=== PATIENT | female | born 1960 | race Caucasian/White ===

== ENCOUNTER 2019-03-28 15:39 | Outpatient (CLI) | payer MEDICAID ==
[2019-03-28 18:56] LABS: BASOPHILS # (AUTO) 0.1 10^3/uL (0.0-0.1); BASOPHILS % (AUTO) 0.8 %; EOSINOPHILS # (AUTO) 0.1 10^3/uL (0.0-0.7); EOSINOPHILS % (AUTO) 1.8 %; HGB - HEMOGLOBIN 13.6 g/dL (12.0-16.0); LYMPHOCYTES # (AUTO) 2.3 10^3/uL (1.5-3.5); MEAN CORPUSCULAR HEMOGLOBIN 30.7 pg (27.0-31.0); MEAN CORPUSCULAR HGB CONC 33.1 g/dL (32.0-36.0); MEAN CORPUSCULAR VOLUME 92.8 fL (81.0-99.0); MEAN PLATELET VOLUME 10.5 fL (7.9-10.8); MONOCYTES # (AUTO) 0.5 10^3/uL (0.0-1.0); MONOCYTES % (AUTO) 7.9 %; NEUTROPHILS # (AUTO) 3.6 10^3/uL (1.5-6.6); NEUTROPHILS % (AUTO) 54.2 %; PLT - PLATELET COUNT 272 10^3/uL (130-450); RED BLOOD COUNT 4.43 10^6/uL (4.20-5.40); WHITE BLOOD COUNT 6.6 x10^3/uL (4.8-10.8)
[2019-03-28 19:10] LABS: ALBUMIN 4.1 g/dL (3.2-5.5); ALBUMIN/GLOBULIN RATIO 1.5 (1.0-2.2); ALKALINE PHOSPHATASE 42 IU/L (42-121); ALT ALANINE AMINOTRANSFERASE 11 IU/L (10-60); AST ASPARTATE AMINOTRANSFERASE 16 IU/L (10-42); BILIRUBIN,TOTAL 0.7 mg/dL (0.2-1.0); BUN - BLOOD UREA NITROGEN 11 mg/dL (6-20); CALCIUM 8.8 mg/dL (8.5-10.3); CARBON DIOXIDE - CO2 28 mmol/L (21-32); CHLORIDE 100 mmol/L (101-111); CHOL/HDL RATIO 4.2 (<4.4); CHOLESTEROL 206 mg/dL; CREATININE 0.9 mg/dL (0.4-1.0); GFR - MDRD 65 (>89); GLUCOSE 86 mg/dL (70-100); HDL CHOLESTEROL 49 mg/dL; LDL CHOLESTEROL,CALCULATED 133 mg/dL; LDL/HDL RATIO 2.7 (<4.4); SODIUM 135 mmol/L (135-145); TOTAL PROTEIN 6.8 g/dL (6.7-8.2); VLDL CHOLESTEROL 24 mg/dL
== END 2019-03-28 23:59 | disposition home or self-care (01) ==
LOC: LAB.WCP 15:39
PROVIDERS: ATTEND Physician Assistant
DX: Z00.00 Encounter for general adult medical examination without abnormal findings (principal); E78.5 Hyperlipidemia, unspecified; I10 Essential (primary) hypertension
CPT/HCPCS: 36415; 80053; 80061; 83721; 84443; 85025

== ENCOUNTER 2019-04-15 13:42 | Outpatient (CLI) | payer MEDICAID ==
--- NOTE | 2019-04-15 15:42 | XRAY Report ---
Reason: DYSPHASIA Procedure Date: 04/15/2019 Accession Number: [id number] / [id number] Procedure: FL - Modified Barium Swallow W/SP CPT Code: Final Report FULL RESULT: EXAM: MODIFIED BARIUM SWALLOW EXAM DATE: 04/15/2019 02:50 PM. CLINICAL HISTORY: Dysphagia. COMPARISON: None. TECHNIQUE: Under the direction of speech pathology, patient swallowed various consistencies of barium under lateral fluoroscopic observation of the neck. Fluoroscopy Time: 1.15 minutes. Number of Images: 54/video. FINDINGS: Swallowing Mechanism: Normal oral phase and swallowing reflex. Airway Protection: Normal epiglottic motion. No episodes of tracheal penetration or aspiration with all consistencies of barium. Pharynx: No significant vallecular or piriform sinus contrast pooling. Other: Mildly prominent cricopharyngeus. IMPRESSION: 1. No aspiration or penetration. 2. Mildly prominent cricopharyngeus. No matt stricture or mass lesion. Reference report issued by the speech pathologist for more detailed information. RADIA
== END 2019-04-15 13:43 | disposition home or self-care (01) ==
LOC: DI 13:42
PROVIDERS: ATTEND Physician Assistant
DX: R47.02 Dysphasia (principal)
CPT/HCPCS: 74230

== ENCOUNTER 2019-05-05 15:54 | Outpatient (CLI) | payer MEDICAID ==
--- NOTE | 2019-05-06 12:44 | Ultrasound Report ---
Reason: DYSPHASIA, CERVICAL LYMPHADENOPATHY, THYROMEGALY Procedure Date: 05/05/2019 Accession Number: [id number] / [id number] Procedure: US - Head or Neck Soft Tissue CPT Code: Final Report FULL RESULT: EXAM: THYROID ULTRASOUND EXAM DATE: 05/05/2019 05:10 PM. CLINICAL HISTORY: Dysphasia, cervical lymphadenopathy, thyromegaly. COMPARISON: None. TECHNIQUE: Real time sonographic imaging of the thyroid was performed by the frit coater. Multiple inside sales representative static images were saved for review. FINDINGS: THYROID GLAND: Right Lobe: 3.9 x 1.5 x 1.7 cm, volume 5.2 cc. Heterogeneous background echotexture. Right Lobe Nodules: Inferior pole of the thyroid contains a solid-appearing hypoechoic 0.5 cm nodule. Left Lobe: 3.4 x 1.6 x 1.4 cm, volume 4 cc. Heterogeneous background echotexture. Left Lobe Nodules: 0.2 cm cyst is noted in the upper pole. Isthmus: 0.3 cm AP. Isthmic Nodules: None. LYMPH NODES: No adenopathy demonstrated in the central or lateral compartment. OTHER: The area indicated as tender by the patient in the right and left neck demonstrates peripherally hyperechoic foci which are centrally hypoechoic with some shadowing, potentially calcified cartilage structures. IMPRESSION: Heterogeneous thyroid without nodules warranting tissue sampling. Management recommendations are based on 2015 [place] [employer] Management Guidelines for Adult Patients with Thyroid Nodules and Differentiated Thyroid Cancer. RADIA
== END 2019-05-05 15:55 | disposition home or self-care (01) ==
LOC: DI 15:54
PROVIDERS: ATTEND Physician Assistant
DX: E01.0 Iodine-deficiency related diffuse (endemic) goiter (principal); R59.0 Localized enlarged lymph nodes; R47.02 Dysphasia
CPT/HCPCS: 76536

== ENCOUNTER 2020-03-25 15:40 | Outpatient (CLI) | payer MEDICAID ==
--- NOTE | 2020-03-25 16:22 | CT Report ---
PROCEDURE: CHEST WO INDICATIONS: WEIGHT LOSS, COUGH, SMOKER TECHNIQUE: Noncontrast 5 mm thick sections acquired from the pulmonary apices to the posterior costophrenic angl es. 7 mm thick coronal and sagittal MIP reformats were then acquired. For radiation dose reduction, the following was used: automated exposure control, adjustment of mA and/or kV according to patient size. COMPARISON: None FINDINGS: Image quality: Excellent. Lungs and pleura: No acute air space opacities. No pleural effusions or pneumothorax. Central and peripheral airways are patent and normal in caliber. Mediastinum: Heart size is normal. No pericardial effusion. No mediastinal adenopathy by size crit eria. Thoracic aorta and central pulmonary arteries are normal in size. Esophagus is normal in erin ricarda. No hiatal hernia. Bones and chest wall: No suspicious bony lesions. No vertebral body compression fractures. No axil peyton or supraclavicular adenopathy by size criteria. The thyroid is normal in size. Abdomen: Visualized upper abdominal solid organs and bowel loops appear normal in the absence of con trast. IMPRESSION: 1. No evidence of malignancy. 2. Lung RADS 1; repeat annual screening chest CT in one year is recommended. Reviewed by: Tamar Hensley MD on 03/25/2020 4:21 PM PST Approved by: Tamar Hensley MD on 03/25/2020 4:21 PM PST Station ID: [id number]
== END 2020-03-25 15:41 | disposition home or self-care (01) ==
LOC: DI 15:40
PROVIDERS: ATTEND Nurse Practitioner Family
DX: R63.4 Abnormal weight loss (principal); R05 Cough; F17.200 Nicotine dependence, unspecified, uncomplicated
CPT/HCPCS: 71250

== ENCOUNTER 2020-05-11 08:00 | Outpatient (CLI) | payer MEDICAID ==
[2020-05-11 18:07] LABS: BASOPHILS # (AUTO) 0.1 10^3/uL (0.0-0.1); BASOPHILS % (AUTO) 1.1 %; EOSINOPHILS # (AUTO) 0.1 10^3/uL (0.0-0.7); EOSINOPHILS % (AUTO) 1.1 %; HGB - HEMOGLOBIN 14.3 g/dL (12.0-16.0); LYMPHOCYTES # (AUTO) 1.9 10^3/uL (1.5-3.5); MEAN CORPUSCULAR HEMOGLOBIN 30.1 pg (27.0-31.0); MEAN CORPUSCULAR HGB CONC 33.9 g/dL (32.0-36.0); MEAN CORPUSCULAR VOLUME 88.8 fL (81.0-99.0); MEAN PLATELET VOLUME 10.5 fL (7.9-10.8); MONOCYTES # (AUTO) 0.3 10^3/uL (0.0-1.0); MONOCYTES % (AUTO) 5.4 %; NEUTROPHILS # (AUTO) 2.4 10^3/uL (1.5-6.6); NEUTROPHILS % (AUTO) 52.2 %; PLT - PLATELET COUNT 262 10^3/uL (130-450); RED BLOOD COUNT 4.75 10^6/uL (4.20-5.40); WHITE BLOOD COUNT 4.7 x10^3/uL (4.8-10.8)
[2020-05-11 18:23] LABS: ALBUMIN 4.2 g/dL (3.2-5.5); ALBUMIN/GLOBULIN RATIO 1.4 (1.0-2.2); ALKALINE PHOSPHATASE 51 IU/L (42-121); ALT ALANINE AMINOTRANSFERASE < 10 IU/L (10-60); AST ASPARTATE AMINOTRANSFERASE 12 IU/L (10-42); BILIRUBIN,TOTAL 0.5 mg/dL (0.2-1.0); BUN - BLOOD UREA NITROGEN 11 mg/dL (6-20); CALCIUM 9.3 mg/dL (8.5-10.3); CARBON DIOXIDE - CO2 27 mmol/L (21-32); CHLORIDE 100 mmol/L (101-111); CHOL/HDL RATIO 3.6 (<4.4); CHOLESTEROL 204 mg/dL; CREATININE 0.8 mg/dL (0.4-1.0); GLUCOSE 89 mg/dL (70-100); HDL CHOLESTEROL 56 mg/dL; LDL CHOLESTEROL,CALCULATED 129 mg/dL; LDL/HDL RATIO 2.3 (<4.4); SODIUM 136 mmol/L (135-145); TOTAL PROTEIN 7.1 g/dL (6.7-8.2); VLDL CHOLESTEROL 19 mg/dL
== END 2020-05-11 23:59 | disposition home or self-care (01) ==
LOC: LAB.WCP 08:00
PROVIDERS: ATTEND Nurse Practitioner Family
DX: E01.0 Iodine-deficiency related diffuse (endemic) goiter (principal); I10 Essential (primary) hypertension; J45.20 Mild intermittent asthma, uncomplicated; E78.5 Hyperlipidemia, unspecified; G40.909 Epilepsy, unspecified, not intractable, without status epilepticus
CPT/HCPCS: 36415; 80053; 80061; 83721; 84443; 85025

== ENCOUNTER 2020-05-21 13:01 | Emergency (ER) | payer MEDICAID ==
[2020-05-21] MEDS ORDERED: MELOXICAM 7.5 MG TABLET PO STA (13:43)
--- NOTE | 2020-05-21 13:46 | ED Physician Documentation ---
History of Present Illness - Stated complaint Stated Complaint: R SHOULDER PAIN, R ELBOW PAIN - Chief complaint Chief Complaint: Ext Problem - History obtained from History obtained from: Patient - History of Present Illness Timing: How many days ago (3) Pain level max: 5 Pain level now: 5 - Additonal information Additional information: 59-year-old female presents to the emergency department with right shoulder pain. She does not recall any injury. It is worse with movement, better with rest. She has not taken anything for the pain. States it has been steadily worsening. She also states that if she touches the olecranon process on her elbow it sends a shooting pain up the back of her arm to her neck. There is no redness or swelling at either site. No fevers. No chills. No new medications. Review of Systems Constitutional: denies: Fever, Chills Respiratory: denies: Cough GI: denies: Nausea, Vomiting, Diarrhea : denies: Dysuria Skin: denies: Rash Musculoskeletal: denies: Neck pain, Back pain Neurologic: denies: Headache PD PAST MEDICAL HISTORY - Past Medical History Past Medical History: Yes Cardiovascular: Hypertension, High cholesterol Respiratory: Asthma, Shortness of breath Neuro: TIA, Seizure disorder Endocrine/Autoimmune: None GI: None : None Psych: Depression, Anxiety Musculoskeletal: None Derm: None - Past Surgical History /PERINATAL DIRECTOR: section - Present Medications Home Medications: Ambulatory Orders Medication Instructions Recorded Confirmed Albuterol 2.5 mg INH DAILY 05/05/19 05/05/19 Albuterol Sulfate [Proair Hfa 8.5 gm INH PRN PRN 05/05/19 05/21/20 Inhaler] Fluticasone [Flonase] 250 mcg INH DAILY 05/05/19 05/21/20 Ipratropium [Atrovent] 0.5 mg INH BID 05/05/19 05/21/20 Trazodone HCl 100 mg PO DAILY 05/05/19 05/21/20 Meloxicam [Mobic] 7.5 mg PO BID PRN #20 tablet 05/21/20 - Allergies Allergies/Adverse Reactions: Allergies Allergy/AdvReac Type Severity Reaction Status Date / Time meperidine [From Demerol] Allergy Emesis Verified 05/21/20 13:39 morphine Allergy Emesis Verified 05/21/20 13:39 - Social History Does the pt smoke?: Yes Smoking Status: Current every day smoker PD ED PE NORMAL - Vitals Vital signs reviewed: Yes - General General: Alert and oriented X 3, No acute distress - HEENT HEENT: Moist mucous membranes - Neck Neck: Supple, no meningeal sign - Cardiac Cardiac: RRR - Respiratory Respiratory: No respiratory distress, Clear bilaterally - Derm Derm: Warm and dry - Extremities Extremities: Other - Neuro Neuro: Alert and oriented X 3 - Psych Psych: Normal mood, Normal affect - Free text exam Free text exam: Tender to palpation diffusely about the glenohumeral joint. No swelling. Limited range of motion secondary to pain. Has about 45 degrees of abduction. 70 degrees of external rotation. She can fully internally rotate the shoulder. Neurovascular intact including the axillary nerve. Normal examination of the right elbow. No swelling or tenderness. Results - Vitals Vitals: Vital Signs - 24 hr 05/21/20 05/21/20 13:04 14:58 Temperature 36.8 C Heart Rate 91 80 Respiratory 16 Rate Blood Pressure 152/93 H 168/80 H O2 Saturation 98 Oxygen O2 Source Room air - Rads (name of study) R shoulder xray Radiology: Prelim report reviewed, EMP read contemporaneously, See rad report PD MEDICAL DECISION MAKING - ED course Complexity details: reviewed results, re-evaluated patient, considered differential, d/w patient ED course: 59-year-old female with right shoulder pain. Appears to have a calcific tendinitis and calcific bursitis. We will trial her on anti-inflammatories, stretching and follow-up with orthopedics and/or her doctor. No evidence of fracture, dislocation. Neurovascular intact. Patient feels better with a sling. She can use this intermittently. Patient counseled regarding signs and symptoms for which I believe and urgent re-evaluation would be necessary. Patient with good understanding of and agreement to plan and is comfortable going home at this time This document was made in part using voice recognition software. While efforts are made to proofread this document, sound alike and grammatical errors may occur. IMPRESSION: No trauma. Mild to moderate AC joint osteoarthritis. A combination of both calcific tendinitis and calcific bursitis is seen at the lateral shoulder area, mild in overall severity. Departure - Departure Disposition: 01 Home, Self Care Clinical Impression: Calcific tendinitis Rotator cuff tendonitis Qualifiers: Laterality: right Qualified Code(s): M75.81 - Other shoulder lesions, right shoulder Condition: Good Instructions: ED Tendinitis Rotator Cuff Follow-Up: Paris Norwood PA [Primary Care Provider] - Within 1 week Prescriptions: Meloxicam [Mobic] 7.5 mg PO BID PRN #20 tablet PRN Reason: Pain Comments: Continue to gently stretch your shoulder at home. You can use the meloxicam as needed for pain. Follow-up with your doctor for further care. Your prescription was sent electronically to [facility] in [place]. Discharge Date/Time: 05/21/20 14:58
--- NOTE | 2020-05-21 14:08 | XRAY Report ---
PROCEDURE: Shoulder 3 View RT INDICATIONS: R shoulder pain TECHNIQUE: 4 views of the shoulder were acquired. COMPARISON: None. FINDINGS: Bones: No fractures or dislocations. No suspicious bony lesions. Visualized ribs appear intact. Soft tissues: There is a linear calcification at the expected position of the lateral supraspinatus tendon insertion, and also adjacent to this calcification are several small amorphous ovoid calcifica tions consistent with calcific bursitis. No additional suspicious soft tissue calcifications. Note is made of mild to moderate AC joint osteo arthritis. IMPRESSION: No trauma. Mild to moderate AC joint osteoarthritis. A combination of both calcific tend initis and calcific bursitis is seen at the lateral shoulder area, mild in overall severity. Reviewed by: Ricky Titus MD on 05/21/2020 2:06 PM PST Approved by: Ricky Titus MD on 05/21/2020 2:06 PM [facility] Station ID: [id number]
[2020-05-21 14:59] VITALS: BP 168/80
--- OUTSIDE RECORDS SUMMARY | 2020-05-26 01:41 | EXTERNAL MEDICAL SUMMARY RPT | Continuity of Care Document ---
:1960 Demographics Phone Unavailable Preferred Language Malay Marital Status Unknown Jewish Affiliation Unknown Race Unknown Ethnic Group Unknown Author Organization [facility] Address [address] [place] [address] Phone Care Team Providers Name Role Phone PA-C Unavailable Unavailable Holiday Unavailable Unavailable Problems date description facility 2020-03-16 00:00:00 TSH WITH REFLEX TO [facility] 2020-03-16 00:00:00 Tobacco use disorder [facility] Pr [facility] 2020-03-16 00:00[facility]00 [facility] 2020-03-16 00:00:00 CT [facility] 2020-03-16 00:00:00 COMPREHENSIVE METABOLIC PANEL [facility] Primary Care [facility] 2020-03-16 00:00:00 LIPIDS [facility]CREEN [facility] 2020-03-16 00:00:00 CBC W/Diff/Plt [facility] 2020-03-16 00:00:00 Nicotine dependence, [facility] unspecified, uncomplicated [facility] 2020-03-16 00:00:00 Cough [facility] 2020-03-16 00:00:00 Abnormal weight loss [facility] 2020-03-16 00:00:00 Health-related behavior [facility] 2020-03-16 00:00:00 Tobacco use and exposure [facility] 2020-03-16 00:00:00 Exercise [facility] 2020-03-16 00:00:00 Details of drug misuse behavior [facility] Care [facility] 2020-03-16 00:00:00 Little interest or pleasure in [facility] doing things? [facility] 2020-03-16 00:00:00 Feeling down, depressed, or [facility] hopeless? [facility] 2020-03-16 00:00:00 Current every day sm[facility] 2020-03-16 00:00:[facility] 2020-03-16 00:00:00 Tobacco smoking status NHIS [facility] 2020-03-16 00:00:00 [facility]:00:00 Anxiety state, unspecified [facility] 2020-04-13 00:00:00 Anxiety disorder, unspecified [facility] Primary Care [facility] 2020-04-13 00:00:00 Health-related behavior [facility] 2020-04-13 00:00:00 Tobacco use and exposure [facility] 2020-04-13 00:00:00 Exercise [facility] 2020-04-13 00:00:00 Details of drug misuse behavior [facility] Primary Care [facility] 2020-04-13 00:00:00 Current every day smoker [facility] 2020-04-13 00:00:00 Anxiety [facility] 2020-04-13 00:00:00 Tobacco [facility] 2020-04-13 00:00:00 Total score? [facility] 2020-05-11 00:00 IODINE-DEFICIENCY [facility] DIFFUSE (ENDEMIC) [facility] 2020-05-11 00:00 HYPERLIPIDEMIA, UNSPECIFIED [facility] 2020-05-11 00:00 ESSENTIAL (PRIMARY) [facility] HYPERTENSION 2020-05-11 00:00 MILD INTERMITTENT [facility]HMA[facility] UN[facility] 2020-05-11 00:00 UNSPECIFIED [facility]UL[facility] 2020-05-11 08:00 IODINE-DEFICIENCY RELATED [facility] DIFFUSE (ENDEMIC) [facility] 2020-05-11 08:00 HYPER[facility]IPIDEMIA, [facility]-11 08:00 ESSENTIAL (PRIMARY) [facility] HYPERTENSION 2020-05-11 08:00 MILD INTERMITTENT ASTHMA, [facility] UNCOMPLICATED 2020-05-11 08:00 UNSPECIFIED CONVULSIONS [facility] 2020-05-17 00:00:00 Health-related behavior [facility] Primary Care [facility] 2020-05-17 00:00:00 Tobacco use and exposure [facility] Primary Care [facility] 2020-05-17 00:00:00 Exercise [facility] 2020-05-17 00:00:00 Details of drug misuse behavior [facility] Care [facility] 2020-05-17 00:00:00 Current every day smoker [facility] Primary Care [facility] 2020-05-17 00:00:00 Tobacco smoking status NHIS [facility] Primary Care [facility] 2020-05-17 00:00:00 Total score? [facility] 2020-05-24 00:00:00 Disorders of bursae and tendons [facility] Primary Care in shoulder region, unspecified [place] [facility] 2020-05-24 00:00:00 Calcium deposits in tendon and [facility] Primary Care bursa [facility] 2020-05-24 00:00:00 Calcific tendinitis, [facility] Care unspecified site [place] [facility] 2020-05-24 00:00:00 Calcific tendinitis [facility] Allergies date description facility NO KNOWN ALLERGIES [facility] Medic al Center morphine [facility] Center meperidine [facility] Medic [facility] NO ALLERGY INFORMATION AVAILABLE [facility] ASPIRIN [facility] Medications date description facility 2020-03-16 00:00:00 null [facility] [place] 2020-03-16 00:00:00 null [facility] 2020-03-16 00:00:00 null [facility] 2020-03-16 00:00:00 null [facility] 2020-03-16 00:00:00 PREDNISONE [facility] 2020-03-16 00:00:00 IPRATROPIUM-ALBUTEROL [facility] 2020-03-16 00:00:00 IPRATROPIUM-ALBUTEROL [facility] 2020-03-16 00:00:00 PREDNISONE [facility] 2020-04-13 00:00:00 null [facility] 2020-04-13 00:00:00 null [facility] 2020-04-13 00:00:00 null [facility] 2020-04-13 00:00:00 null [facility] 2020-04-13 00:00:00 null [facility] 2020-04-13 00:00:00 null [facility] 2020-04-13 00:00:00 null [facility] 2020-04-13 00:00:00 null [facility] 2020-04-13 00:00:00 FLUTICASONE PROPIONATE [facility] [place] 2020-04-13 00:00:00 PROPRANOLOL HCL [facility] 2020-04-13 00:00:00 SERTRALINE HCL [facility] 2020-04-13 00:00:00 ALPRAZOLAM [facility] 2020-04-13 00:00:[address] [facility] Primary Care [facility] 2020-04-13 00:00:00 ALPRAZOLAM [facility] 2020-04-13 00:00:00 SERTRALINE HCL [facility] [place] 2020-04-13 00:00:00 [facility]OLOL HCL [facility] [place] 2020-05-24 00:00:00 null [facility] [place] 2020-05-24 00:00:00 null [facility] [place] 2020-05-24 00:00:[address] [facility] [place] 2020-05-24 00:00:[address] [facility] Prim [facility] Care [place] [facility] Procedures date description facility 2020-03-16 00:00:00 TSH WITH REFLEX TO FT4 [facility] Primary Care [place] date description facility 2020-03-16 00:00:00 CT CHEST WO [facility] [place] [facility] date description facility 2020-03-16 00:00:00 COMPREHENSIVE METABOLIC PANEL [facility] Primary Care [place] [facility] date description facility 2020-03-16 00:00:[address] [facility] [place] [facility] date description facility 2020-03-16 00:00:00 CBC W/Diff/Plt [facility] [place] [facility] date description facility 2020-03-16 00:00:[address] [facility] [place] [facility] Results Social History date description facility 2020-03-16 00:00:00 Current [facility] day sm[facility] [place] date description facility 2020-03-16 00:00:00 Smoker [facility] [place] date description facility 2020-04-13 00:00:00 Current [facility] day [facility]oker [facility] [place] date description facility 2020-05-17 00:00:00 Current [facility] day smoker [facility] [place] Social History date description facility 2020-03-16 00:00:00 Current every day smoker [facility] [place] date description facility 2020-03-16 00:00:00 Smoker [facility] [place] [facility] date description facility 2020-04-13 00:00:00 Current [facility] day smoker [facility] [place] date description facility 2020-05-17 00:00:00 [facility] [place] date description facility [phone]
== END 2020-05-21 14:58 | disposition home or self-care (01) ==
LOC: ED 13:01
DX: M75.31 Calcific tendinitis of right shoulder (principal); M75.51 Bursitis of right shoulder; M75.81 Other shoulder lesions, right shoulder; M19.011 Primary osteoarthritis, right shoulder; I10 Essential (primary) hypertension; F17.200 Nicotine dependence, unspecified, uncomplicated
CPT/HCPCS: 73030; 99283; 99284; A9270

== ENCOUNTER 2020-07-16 14:40 | Outpatient (CLI) | payer MEDICAID | END 2020-07-16 14:41 | disposition home or self-care (01) | LOC: LAB 14:40 | PROVIDERS: ATTEND Physician Assistant | DX: Z01.812 Encounter for preprocedural laboratory examination (principal); Z20.822 Contact with and (suspected) exposure to COVID-19; R63.4 Abnormal weight loss; R11.12 Projectile vomiting ==

== ENCOUNTER 2020-07-20 08:22 | Day surgery (SDC) | payer MEDICAID ==
[2020-07-20] MEDS ORDERED: LACTATED RINGERS 1,000 ML IV ONE ×2 (08:57→11:24)
--- NOTE | 2020-07-20 09:10 | ANESTHESIA ---
Pre-Anesthesia VS, & Labs - Diagnosis weight loss, dysphagia, odynophagia - Procedure colonoscopy/egd Vital Signs: Temp Pulse Resp BP Pulse Ox 36.1 C L 73 16 129/86 H 97 07/20/20 08:30 07/20/20 08:30 07/20/20 08:30 07/20/20 08:30 07/20/20 08:30 Height: 5 ft 2 in Weight (kg): 63.4 kg Body Mass Index: 25.5 BMI Classification: Overweight - NPO >8 hours - Is Patient ?: No - Lab Results Lab results reviewed: Yes Home Medications and Allergies Home Medications: Ambulatory Orders Fluticasone/Salmeterol [Advair 250-50 Diskus] 1 each IH DAILY 07/09/20 Ipratropium/Albuterol [Duoneb] 3 ml INH ONCE 07/09/20 Propranolol HCl 20 mg PO BID 07/09/20 Sertraline [Zoloft] 50 mg PO DAILY 07/09/20 Fluticasone [Flonase] 50 mcg INH DAILY 05/05/19 Trazodone HCl 100 mg PO QPM 05/05/19 Fluticasone/Salmeterol [Advair 250-50 Diskus] 1 each IH DAILY 07/09/20 Ipratropium/Albuterol [Duoneb] 3 ml INH ONCE 07/09/20 Propranolol HCl 20 mg PO BID 07/09/20 Sertraline [Zoloft] 50 mg PO DAILY 07/09/20 Allergies/Adverse Reactions: Allergies Allergy/AdvReac Type Severity Reaction Status Date / Time meperidine [From Demerol] Allergy Emesis Verified 05/21/20 13:39 morphine Allergy Emesis Verified 05/21/20 13:39 Anes History & Medical History - Anesthetic History Anesthesia Complications: reports: No previous complications Family history of Anesthesia Complications: Denies Family history of Malignant Hyperthermia: Denies - Medical History Cardiovascular: reports: Hypertension, High cholesterol Pulmonary: reports: Asthma, COPD, Sleep apnea Gastrointestinal: reports: None, Other (recent weight loss (20 lbs)) Urinary: reports: None Neuro: reports: TIA, Seizure disorder Musculoskeletal: reports: Other Endocrine/Autoimmune: reports: None Skin: reports: None Smoking Status: Current every day smoker - Surgical History Gynecologic: reports: section Exam General: Alert, Oriented x3, Cooperative Dental: Loose/Frag (both front lower, upper left), Poor dentition Mouth Openin Fingerbreadth Neck Mobility: Normal Mallampati classification: II Thyromental Distance: 4-6 cm Respiratory: Lungs clear, Normal breath sounds Cardiovascular: Regular rate Neurological: Normal speech Mental/Cognitive Status: Alert/Oriented X3, Normal for patient Cognitive Status: Within normal limits Plan Anesthesia Type: Total IV Consent for Procedure(s) Verified and Reviewed: Yes Code Status: Attempt Resuscitation ASA classification: 2-Mild systemic disease Is this case an emergency?: No
[2020-07-20] MEDS ORDERED: LIDOCAINE-MPF 2% 5 ML VIAL ONE (10:30)
[2020-07-20] MEDS ORDERED: PROPOFOL 500 MG/50 ML 500 MG/50 ML VIAL ONE (10:30)
[2020-07-20] MEDS ORDERED: MIDAZOLAM 2 MG/2 ML VIAL ONE (10:34)
[2020-07-20] MEDS ORDERED: ONDANSETRON 4 MG/2 ML VIAL ONE (10:34)
[2020-07-20 11:46] VITALS: BP 161/94
--- NOTE | 2020-07-20 13:41 | ANESTHESIA POST OP EVALUATION ---
Anesthesia Post Eval - Post Anesthesia Eval Vitals: Last Vital Signs Temp 36.2 C L 07/20/20 11:45 Pulse 89 07/20/20 11:45 Resp 12 07/20/20 11:45 BP 161/94 H 07/20/20 11:45 Pulse Ox 100 07/20/20 11:45 CV Function Including HR & BP: positive: Stable Pain Control: positive: Satisfactory Nausea & Vomiting: positive: Negative Mental Status: positive: Baseline Respiratory Status: Airway Patent Hydration Status: Satisfactory Anesthesia Complications: positive: None
== END 2020-07-20 08:23 | disposition home or self-care (01) ==
LOC: SDS 08:22
PROVIDERS: ATTEND Surgery
PROC: 0DB68ZX Excision of Stomach, Via Natural or Artificial Opening Endoscopic, Diagnostic (ICD-10-PCS; 2020-07-20)
PROC: 0DB28ZX Excision of Middle Esophagus, Via Natural or Artificial Opening Endoscopic, Diagnostic (ICD-10-PCS; 2020-07-20)
PROC: 0DB48ZX Excision of Esophagogastric Junction, Via Natural or Artificial Opening Endoscopic, Diagnostic (ICD-10-PCS; 2020-07-20)
PROC: 0DJD8ZZ Inspection of Lower Intestinal Tract, Via Natural or Artificial Opening Endoscopic (ICD-10-PCS; 2020-07-20)
PROC: 0D778ZZ Dilation of Stomach, Pylorus, Via Natural or Artificial Opening Endoscopic (ICD-10-PCS; 2020-07-20)
PROC: 0DB98ZX Excision of Duodenum, Via Natural or Artificial Opening Endoscopic, Diagnostic (ICD-10-PCS; principal; 2020-07-20 09:30)
PROC: 0DB78ZX Excision of Stomach, Pylorus, Via Natural or Artificial Opening Endoscopic, Diagnostic (ICD-10-PCS; 2020-07-20 09:30)
DX: R63.4 Abnormal weight loss (principal); R11.2 Nausea with vomiting, unspecified; K21.9 Gastro-esophageal reflux disease without esophagitis; K31.1 Adult hypertrophic pyloric stenosis; K29.60 Other gastritis without bleeding; B96.81 Helicobacter pylori [H. pylori] as the cause of diseases classified elsewhere; K44.9 Diaphragmatic hernia without obstruction or gangrene; K64.8 Other hemorrhoids; K57.30 Diverticulosis of large intestine without perforation or abscess without bleeding; J44.9 Chronic obstructive pulmonary disease, unspecified; F17.200 Nicotine dependence, unspecified, uncomplicated; E66.3 Overweight; Z68.25 Body mass index [BMI] 25.0-25.9, adult; I10 Essential (primary) hypertension; G47.30 Sleep apnea, unspecified; G40.909 Epilepsy, unspecified, not intractable, without status epilepticus
CPT/HCPCS: 43239; 43245; 45378; J7120

== ENCOUNTER 2021-09-08 09:33 | Inpatient (IN) | payer MEDICAID ==
--- NOTE | 2021-09-08 11:19 | ED Physician Documentation ---
PD HPI DYSPNEA - Stated complaint Stated Complaint: KIMBERLI GLYNNES - Chief complaint Chief Complaint: Resp - History obtained from History obtained from: Patient - History of Present Illness Timing - onset: How many days ago (4-5) Timing - onset during: Light activity Timing - duration: Days (4-5) Timing - details: Gradual onset, Still present Inciting event(s): URI (some cough and congestion. she says will often get flare up this time of year, not sure if allergies or that her family gets ill and passes it on.), Other (she says kiconnie had URI symptoms last week.). No: Out of meds Improved by: Rest. No: Inhaler/neb Worsened by: Exertion (even just walking in house/to bathroom, etc.) Associated symptoms: Cough, Wheezing. No: Fever, Chest pain / discomfort, Palpitations, Bilateral edema Similar symptoms before: Diagnosis (COPD with exacerbations in the past.) Recently seen: Not recently seen Review of Systems Constitutional: denies: Fever, Chills Nose: reports: Congestion. denies: Rhinorrhea / runny nose Cardiac: denies: Chest pain / pressure, Palpitations, Pedal edema Respiratory: reports: Dyspnea, Cough, Wheezing GI: denies: Abdominal Pain, Nausea, Vomiting, Diarrhea Skin: reports: Other (had some red itching blotches on arms last night, but resolved now.) Musculoskeletal: denies: Neck pain, Back pain, Extremity swelling Neurologic: reports: Generalized weakness. denies: Near syncope PD PAST MEDICAL HISTORY - Past Medical History Cardiovascular: Hypertension, High cholesterol Respiratory: Asthma, COPD (MDIs and nebs at home. Does not use oxygen at home. ), Sleep apnea Neuro: TIA, Seizure disorder Endocrine/Autoimmune: None GI: None, Other (recent weight loss (20 lbs)) : None HEENT: Chronic vision loss Psych: Depression, Anxiety Musculoskeletal: Other Derm: None - Past Surgical History /WIRELESS SALES EXPERT: section - Present Medications Home Medications: Ambulatory Orders Medication Instructions Recorded Confirmed Fluticasone/Salmeterol [Advair 1 puffs INH BID 07/09/20 09/08/21 250-50 Diskus] Ipratropium/Albuterol [Duoneb] 3 ml INH QID PRN 07/09/20 09/08/21 Albuterol Sulfate [Proair Hfa 2 puffs INH Q4H PRN 09/08/21 09/08/21 Inhaler] Meloxicam [Mobic] 7.5 mg PO BID 09/08/21 09/08/21 Sertraline HCl 100 mg PO DAILY 09/08/21 09/08/21 Trazodone HCl 150 mg PO QPM 09/08/21 09/08/21 - Allergies Allergies/Adverse Reactions: Allergies Allergy/AdvReac Type Severity Reaction Status Date / Time Fish Containing Products Allergy Anaphylaxis Verified 09/08/21 17:00 meperidine [From Demerol] Allergy Emesis Verified 09/08/21 09:35 morphine Allergy Emesis Verified 09/08/21 09:35 shellfish derived Allergy Anaphylaxis Verified 09/08/21 16:59 - Social History Does the pt smoke?: Yes Smoking Status: Current every day smoker PD ED PE NORMAL - Vitals Vital signs reviewed: Yes - General General: Alert and oriented X 3, Well developed/nourished, Other (has some work of breathing with accesory muscle use. Able to talk sentences though. ) - HEENT HEENT: Ears normal, Moist mucous membranes, Pharynx benign - Neck Neck: Supple, no meningeal sign, No adenopathy - Cardiac Cardiac: RRR, No murmur - Respiratory Respiratory: No: No respiratory distress (accessory muscle use and sitting up. ), Clear bilaterally (diffuse exp wheezing. No coarse sounds. ) - Abdomen Abdomen: Soft, Non tender - Derm Derm: Normal color, Warm and dry - Extremities Extremities: No deformity, No tenderness to palpate, No edema, No calf tenderness / cord - Neuro Neuro: Alert and oriented X 3, No motor deficit, Normal speech Results - Vitals Vitals: Vital Signs - 24 hr 09/08/21 09/08/21 09/08/21 09:35 11:12 11:58 Temperature 36.5 C Heart Rate 100 65 84 Respiratory 16 20 22 Rate Blood Pressure 180/90 H 155/106 H O2 Saturation 100 93 09/08/21 09/08/21 09/08/21 13:31 14:02 14:28 Temperature Heart Rate 92 89 83 Respiratory 17 20 21 Rate Blood Pressure 175/90 H O2 Saturation 91 L 09/08/21 14:45 Temperature Heart Rate 89 Respiratory 16 Rate Blood Pressure O2 Saturation 89 L Oxygen O2 Source Room air - Labs Labs: Laboratory Tests 09/08/21 09/08/21 09/08/21 11:49 11:49 11:49 WBC 9.4 RBC 5.10 Hgb 15.6 Hct 45.0 MCV 88.2 MCH 30.6 MCHC 34.7 RDW 12.1 Plt Count 286 MPV 9.2 Neut # (Auto) 7.4 H Lymph # (Auto) 1.3 L Craven # (Auto) 0.5 Eos # (Auto) 0.0 Baso # (Auto) 0.1 Absolute Nucleated RBC 0.00 Nucleated RBC % 0.0 Sodium 138 Potassium 4.5 Chloride 100 L Carbon Dioxide 25 Anion Gap 13.0 BUN 17 Creatinine 1.0 Estimated GFR (MDRD) 57 L Glucose 91 Calcium 9.7 Magnesium 2.0 Total Bilirubin 0.9 AST 23 ALT 14 Alkaline Phosphatase 57 B-Natriuretic Peptide 24 Total Protein 8.2 Albumin 4.5 Globulin 3.7 Albumin/Globulin Ratio 1.2 Lipase 40 SARS-CoV-2 (PCR) 09/08/21 14:00 WBC RBC Hgb Hct MCV MCH MCHC RDW Plt Count MPV Neut # (Auto) Lymph # (Auto) Craven # (Auto) Eos # (Auto) Baso # (Auto) Absolute Nucleated RBC Nucleated RBC % Sodium Potassium Chloride Carbon Dioxide Anion Gap BUN Creatinine Estimated GFR (MDRD) Glucose Calcium Magnesium Total Bilirubin AST ALT Alkaline Phosphatase B-Natriuretic Peptide Total Protein Albumin Globulin Albumin/Globulin Ratio Lipase SARS-CoV-2 (PCR) NOT DETECTED - Rads (name of study) chest xray Radiology: Prelim report reviewed (no acute cardiopulmonary abnormality. Suspect old 7th rib fracture. ), See rad report PD MEDICAL DECISION MAKING - ED course Complexity details: reviewed results, re-evaluated patient (still wheezing but appears more comfortable lying down after several nebs. Sats though at 88-91% at rest, and go down to 88% just standing bedside for commode, with much increased work of breathing. ), considered differential, d/w patient, d/w technology applications consultant (hospitalist) Departure - Departure Disposition: ED Place in Observation Clinical Impression: Acute exacerbation of COPD with asthma, Hypoxia Dyspnea Qualifiers: Dyspnea type: shortness of breath Qualified Code(s): R06.02 - Shortness of breath Condition: Stable Record reviewed to determine appropriate education?: Yes Discharge Date/Time: 09/08/21 16:43
[2021-09-08] MEDS ORDERED: SODIUM CHLORIDE 0.9% 1,000 ML IV STA (11:42)
[2021-09-08] MEDS ORDERED: IPRATROPIUM/ALBUTEROL 3 ML NEB INH STA ×2 (11:42→13:52)
[2021-09-08] MEDS ORDERED: DEXAMETHASONE 10 MG/ML VIAL IVP STA (11:43)
[2021-09-08] MEDS ORDERED: cephALEXin 250 MG CAPSULE PO STA (11:43)
[2021-09-08 11:54] LABS: BASOPHILS # (AUTO) 0.1 10^3/uL (0.0-0.1); BASOPHILS % (AUTO) 0.5 %; EOSINOPHILS % (AUTO) 0.1 %; HGB - HEMOGLOBIN 15.6 g/dL (12.0-16.0); LYMPHOCYTES # (AUTO) 1.3 10^3/uL (1.5-3.5); LYMPHOCYTES % (AUTO) 14.2 %; MEAN CORPUSCULAR HEMOGLOBIN 30.6 pg (27.0-31.0); MEAN CORPUSCULAR HGB CONC 34.7 g/dL (32.0-36.0); MEAN CORPUSCULAR VOLUME 88.2 fL (81.0-99.0); MEAN PLATELET VOLUME 9.2 fL (7.9-10.8); MONOCYTES # (AUTO) 0.5 10^3/uL (0.0-1.0); MONOCYTES % (AUTO) 5.3 %; NEUTROPHILS # (AUTO) 7.4 10^3/uL (1.5-6.6); NEUTROPHILS % (AUTO) 79.6 %; PLT - PLATELET COUNT 286 10^3/uL (130-450); RED CELL DISTRIBUTION WIDTH 12.1 % (12.0-15.0); WHITE BLOOD COUNT 9.4 x10^3/uL (4.8-10.8)
[2021-09-08 12:09] LABS: ALBUMIN 4.5 g/dL (3.2-5.5); ALBUMIN/GLOBULIN RATIO 1.2 (1.0-2.2); BILIRUBIN,TOTAL 0.9 mg/dL (0.2-1.0); CALCIUM 9.7 mg/dL (8.5-10.3); POTASSIUM 4.5 mmol/L (3.5-5.0); TOTAL PROTEIN 8.2 g/dL (6.7-8.2)
--- NOTE | 2021-09-08 12:23 | XRAY Report ---
PROCEDURE: Chest 1 View X-Ray INDICATIONS: chest pain TECHNIQUE: One view of the chest was acquired. COMPARISON: CT chest 03/25/2020. FINDINGS: Surgical changes and devices: None. Lungs and pleura: No pleural effusions or pneumothorax. Lungs are clear. Mediastinum: Mediastinal contours appear normal. Heart size is normal. Bones and chest wall: Irregularity of the right 7th rib which could represent prior fracture. No pushpa picious bony lesions. Overlying soft tissues appear unremarkable. IMPRESSION: No acute cardiopulmonary abnormality. Suspect prior right 7th rib fracture. Reviewed by: Isma Barahona MD on 09/08/2021 12:21 PM PDT Approved by: Isma Barahona MD on 09/08/2021 12:21 PM PDT Station ID: [id number]
[2021-09-08] MEDS ORDERED: ALBUTEROL NEB 2.5 MG/3 ML INH STA (13:01)
[2021-09-08] MEDS ORDERED: ONDANSETRON 4 MG/2 ML VIAL IVP PRN (15:15)
[2021-09-08] MEDS ORDERED: ONDANSETRON ODT 4 MG TABLET TL PRN (15:15)
[2021-09-08] MEDS ORDERED: ALBUTEROL NEB 2.5 MG/3 ML INH PRN (15:17)
[2021-09-08] MEDS: ALBUTEROL NEB 2.5 MG/3 ML INH STA ×2 (15:20→17:36)
--- NOTE | 2021-09-08 15:23 | HISTORY & PHYSICAL EXAMINATION ---
Chief Complaint - Chief Complaint Chief Complaint: Wheezing and shortness of breath unresponsive to treatment in ER History of Present Illness - Admitted From Admitted From:: Home - History Obtained From Records Reviewed: [facility] History obtained from: Dr. alfredo and patient Exam Limitations: none - History of Present Illness HPI Comment/Other: She is a smoker of about half a pac/day. Has a history of asthma and usually takes an inhaled steroid as well as short acting bronchodilator. In the last 3 days she has worsened with her cough, sob, congestion. . Inhalers are no longer controlling her symptoms and she came to the emergency room. 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 She takes care of not only her grandchildren, but [employer] personnel. The youngest is 1-year-old and the oldest is 6. Her granddaughter was sick with a cold and had a fever and she thinks she got a cold from her granddaughter. There is no phlegm discoloration. No hemoptysis. She herself has not had fever or rigors. Just increasing congestion, cough, and wheezing that is not able to be relieved by her inhalers. Yesterday she went out for a smoke and was standing on the porch. When she ca me back in she felt like she was itching on her legs and looked down at her knees. She noticed that there were welts/hives there but they went away after 30 to 40 minutes and she ignored them. They were intensely pruritic. Today in the emergency room she had another episode of hives that were over her back, arms, legs. They only lasted about 30 to 40 minutes and they have gone away. She has never had hives like this before. On review of systems, although she has well-established COPD and asthma, her GI review of systems is also notably positive. For about 6 years she has been having early satiety. She can eat normally for a few days in a row and then she just loses her appetite. She will eat a candy bar and that will last her 3 or 4 days if not more. She can actually go up to 10 days without eating and not miss food at all. She does drink water to make sure she stays hydrated but she has abolutely no desire to eat. If she drinks too much water, her belly will feel like it is too distended and that "I am going to explode". In addition to that, she can drink a glass of water and 30 minutes later water comes through her system and she defecates pure water. She did have an EGD 4 years ago and was found to have "some type of infection" but was never really able to complete therapy with the antibiotics because they made her so sick. She does not remember having a colonoscopy or biopsies to establish any diseases. I asked her if she had celiac disease, or inflammatory bowel disease and she is not aware of any of those things. She has had tremendous weight loss with this. However, her sister is a bakery chef. Since her sister is moved to the [place] and her sister is mated for mission to make sure that August eats enough. Socially she has been slowly gaining some weight back but she still pretty thin. She is starting to lose her teeth. She just lost a tooth yesterday. And hair is falling out. She says that she is kind of ashamed about this and has not discussed this with anybody. I asked why she should feel so shameful about a bowel disorder that she has no control over. I asked her point blank if she has some type of eating disorder and she says no. She used to love food. She does not know why this has been happening. She denies fevers, sweats, abdominal pain. No blood in her stool. No change in bladder habits. In the emergency room blood pressure is high at 180/90. Heart rate 100. Initially she was 100% on room air. But with trying to get up and move around her room air sats dropped to 89%. She received albuterol once, Keflex once, d examethasone, DuoNeb twice and is continuing to wheeze and be short of breath with use of accessory muscles. She also has a new hypoxemia that she did not have before. As such Dr. Alfredo is asking the patient to be placed in observation status for COPD exacerbation. History - Past Medical History Cardiovascular: reports: Hypertension, High cholesterol Respiratory: reports: Asthma, COPD, Sleep apnea Neuro: reports: TIA (Happened in her mid 30s. No reason for her to have happe migue but it was documented and she is never had one since.), Seizure disorder (That lasted about 24 years. Started with a TIA 30 years ago and last seizure 6 [address] [place]ed.) Endocrine/Autoimmune: reports: None GI: reports: Other (recent weight loss (20 lbs), Severe intermittent anorexia, diarrhea) TRANSMISSION REPAIRER: reports: Other (G1, P1) : reports: None HEENT: reports: Chronic vision loss, Other (Losing her teeth) Psych: reports: Depression, Anxiety Derm: reports: Other (Recent hives) MRSA Hx?: No - Past Surgical History /TRANSMISSION REPAIRER: reports: section - Family & Social History Family History Comment/Other: Father at age 78 of coronary artery disease, acute renal failure and dialysis. Mother at age 54 of hypertension, pancreatic cancer. One sister is alcoholic and a bakery chef. One sister has Jonh 2 mutation and thrombocytosis. One brother is healthy as far as she knows. One daughter is completely healthy. Children are healthy Living arrangement: At home Living Situation: Alone Social History Notes: She smokes about 10 cigarettes a day. And does liquid cannabis at night for sleep. She used to smoke cannabis but realized that that probably was not too smart in view of her asthma. She has never been but was with the father of her daughter for several years until they split up. 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 She is very proud of that. She was living in [place], [place] and came to live here 4 years ago to help take care of her grandbabies. [place] 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 She has no history of heroin, cocaine, methamphetamine abuse. - Substance History Use: Uses substance without health or social issues: Tobacco Abuse: Recurrent use of substance despite neg consequences: NONE Dependence: Experiences withdrawal or developed tolerances: NONE - POLST Patient has POLST: No POLST Status: Full Code Meds/Allgy - Home Medications Home Medications: Ambulatory Orders Medication Instructions Recorded Confirmed Fluticasone/Salmeterol [Advair 1 puffs INH BID 07/09/20 09/08/21 250-50 Diskus] Ipratropium/Albuterol [Duoneb] 3 ml INH QID PRN 07/09/20 09/08/21 Albuterol Sulfate [Proair Hfa 2 puffs INH Q4H PRN 09/08/21 09/08/21 Inhaler] Meloxicam [Mobic] 7.5 mg PO BID 09/08/21 09/08/21 Sertraline HCl 100 mg PO DAILY 09/08/21 09/08/21 Trazodone HCl 150 mg PO QPM 09/08/21 09/08/21 - Allergies Allergies/Adverse Reactions: Allergies Allergy/AdvReac Type Severity Reaction Status Date / Time Fish Containing Products Allergy Anaphylaxis Verified 09/08/21 17:00 meperidine [From Demerol] Allergy Emesis Verified 09/08/21 09:35 morphine Allergy Emesis Verified 09/08/21 09:35 shellfish derived Allergy Anaphylaxis Verified 09/08/21 16:59 Review of Systems - Constitutional Constitutional: reports: Fatigue, Malaise, Poor appetite, Weight loss. denies: Fever, Chills, Weakness, Diaphoresis, Night sweats - Eyes Eyes: reports: Spots in vision (Only when she used to have her seizures), Vision loss. denies: Pain, Irritation, Amaurosis, Blurred vision, Field loss - Ears, Nose & Throat Ears, Nose & Throat: reports: Dental decay, Dental pain. denies: Ear pain, Hearing loss, Hearing aids, Tinnitus, Vertigo, Nasal discharge, Nasal obstruction, Nasal congestion, Sore throat, Hoarseness - Cardiovascular Cariovascular: reports: Lightheadedness, Exertional dyspnea, Decr. exercise tolerance (For the last couple of weeks). denies: Irregular heart rate, Palpitations, Chest pain, Edema, Syncope - Respiratory Respiratory: reports: Cough, Sputum production (Clear, no hemoptysis), Wheezing, SOB at rest, SOB with exertion - Gastrointestinal Gastrointestinal: reports: Diarrhea, Nausea, Bloating, Poor appetite, Other (Constant daily borborygmi that is sometimes embarrassing because it is so loud). denies: Abdominal pain, Abdominal distention, Black stools, Bloody stools, Vomiting, Bile emesis, Santo blood emesis, Coffee grounds emesis, Reflux/heartburn - Genitourinary Genitourinary: denies: Dysuria, Frequency, Urgency, Hematuria, Incontinence, Flank pain - Musculoskeletal Musculoskeletal: denies: Muscle pain, Back pain, Muscle aches, Stiffness, Joint pain - Integumentary Integumentary: reports: Rash, Hair changes. denies: Pruritis, Lesions, Dryness, Lumps, Acne, Pigment changes - Neurological Neurological: denies: General weakness, Focal weakness, Headache, Dizziness, Memory problems, Pre-existing deficit - Psychiatric Psychiatric: reports: Depression, Anxiety. denies: Suicidal, Delusions, Hallucinations - Endocrine Endocrine: reports: Intolerance to cold. denies: Polyuria, Polydypsia, Polyphagia - Hematologic/Lymphatic Hematologic/Lymphatic: denies: Anemia, Bruising, Petechiae Prior Level of Functionality: Completely independent with activities of daily living.Known apartment. Drives. Pays bills. 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 Comfortable, able to complete full sentences) Eyes Bilateral: positive: PERRL, EOMI ENT: positive: Other (She is definitely losing teeth. One is gone in the upper right side, and 1 is gone in the bottom center. That what happened yesterday. Gingivitis. Pharynx swollen, no erythema or drainage.) Neck: positive: No JVD. negative: Lymphadenopathy (R), Lymphadenopathy (L), Stiff neck, Carotid bruit Respiratory: positive: No respiratory distress, Wheezes, Rhonchi, Other (Occasional phlegmy cough every but she is able to sit back in bed at less than 45 degrees without respiratory distress, I have a complete conversation with me.). negative: Rales Cardiovascular: positive: Regular rate & rhythm. negative: Gallop/S4, Friction rub Peripheral Pulses: positive: 1+ Abdomen: positive: Non-tender, No organomegaly, Nml bowel sounds, No distention Conclusion/Plan - Problem List (1) Acute exacerbation of COPD with asthma Conclusion/Plan: Patient presents with shortness of breath, cough, sinus and chest congestion for the last 3 days is been getting worse. 2 episodes of hives. Unresponsive to her nebulizers and the night before admission feels like she is getting hives. She is COVID vaccinated. Still smokes. In the ER she has a negative chest x-ray, COVID-negative. But has new hypoxemia not responding to nebulizers. CBC does not have eosinophilia. Plan: Solu-Medrol 40 mg IV push every 8 hours x3 doses Nebulizers at a fixed schedule of every 6 hours Albuterol nebulizer as needed every 2 hours Inhaled Perforomist and inhaled budesonide (2) Hypoxia Conclusion/Plan: New for her. This is the main indication we are placing her in observation. Hopefully this will resolve with resolution of her bronchospasm. There is no pn eumonia on chest x-ray. No congestive heart failure. No leg edema or Homans' sign (3) Depression with anxiety Conclusion/Plan: Zoloft and trazodone resumed. (4) Moderate protein-calorie malnutrition Conclusion/Plan: Examination she is cachectic. Thin. Most recently states she is lost 20 pounds after losing 60 to 80 pounds. She really cannot explain her lack of appetite. I will have her work with nutrition consult, but I have recommended that she at least do 1 Ensure can, 3 times a day. Take a multivitamin once a day. And then work out why she has this malabsorption issue. (5) Abnormal intestinal absorption Conclusion/Plan: Prior to 6 years ago she felt like her appetite and bowels were normal. 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 So I do not think she has liver disease or cholestasis. I talked to her about chronic pancreatitis, cystic fibrosis, Schwachman syndrome, Michela- Arrington syndrome, celiac disease, Inflammatory bowel disease. None of these ring a cheema for her. She is very clear the change happened 6 years ago before moving to [facility]. She has never had gastric surgery or pancreatic resection. Although she has defecation of just clear liquid water she denies that this could be urine in her bowel. She also denies stool in her urine so I doubt fistula. She has no history of scleroderma. She is not ingesting a lot of sorbitol. If she is having significant absorption, her CBC remains normal, magnesium is normal. She has no anemia, no microcytosis or macrocytosis. Plan: Recommend colonoscopy with biopsy, as well as upper GI with jejunal aspirate. This will need to be outpatient Phosphorus, B12, folate, vitamin D, zinc, ESR, lipase, amylase although I doubt Celiac would "appear" 6 years ago, will order Anti TTG. stool C&S, O&P - Lab Results Lab results reviewed: Yes Fish Bones: 09/08/21 11:49 09/08/21 11:49 - Diagnostic Imaging Results Diagnostic Imaging Results: positive: Final report reviewed - EKG Results EKG Interpreted Independently: No Core Measures - Anticipated LOS I expect patient to be DC'd or transferred within 96 hours.: Yes - DVT/VTE - Prophylaxis VTE/DVT Device ordered at admit?: Yes
[2021-09-08] MEDS ORDERED: SODIUM CHLORIDE 0.9% 1,000 ML IV SCH (16:00)
[2021-09-08] MEDS: SODIUM CHLORIDE FLUSH 0.9% 10 ML SYRINGE IVP SCH ×2 (17:02→23:38)
--- NOTE | 2021-09-08 17:02 | PHARMACY PROGRESS NOTE ---
- Best Possible Medication History Admit Date and Time: 09/08/21 1515 Processed by: Pharmacy Medication History completed: Yes Patient Interview: Pt unable to participate Secondary Source(s): Physician records, Pharmacy records, Insurance records As the person ultimately responsible for medication therapy, providers are able to order a medication from an existing home medication list in [facility] via the "Reconcile Routine" prior to Confirmation of that medication by cryptologic support specialist. Such practice is discouraged except when the physician, in their clinical judgment, deems that a medical need exists for a medication without regard to previous use.
[2021-09-08] MEDS: ACETAMINOPHEN 325 MG TABLET PO PRN ×2 (17:40→23:38)
[2021-09-08] MEDS: oxyCODONE 5 MG TABLET PO PRN ×2 (17:41→23:38)
[2021-09-08] MEDS: NICOTINE 7 MG PATCH TOP SCH (17:41)
[2021-09-08] MEDS: IPRATROPIUM/ALBUTEROL 3 ML NEB INH SCH (19:45)
[2021-09-08] MEDS: methylPREDNISolone SUCCINATE 40 MG/ML VIAL IVP SCH (20:54)
[2021-09-08] MEDS: traZODone 50 MG TABLET PO SCH (20:54)
[2021-09-08] MEDS ORDERED: PROPRANOLOL 10 MG TABLET PO SCH (21:00)
[2021-09-09] MEDS: IPRATROPIUM/ALBUTEROL 3 ML NEB INH SCH ×4 (01:00→19:29)
[2021-09-09] MEDS: methylPREDNISolone SUCCINATE 40 MG/ML VIAL IVP SCH ×3 (05:14→21:39)
[2021-09-09 05:53] LABS: HCT - HEMATOCRIT 37.1 % (37.0-47.0); HGB - HEMOGLOBIN 12.9 g/dL (12.0-16.0); LYMPHOCYTES # (AUTO) 0.8 10^3/uL (1.5-3.5); LYMPHOCYTES % (AUTO) 8.2 %; MEAN CORPUSCULAR HEMOGLOBIN 30.3 pg (27.0-31.0); MEAN CORPUSCULAR HGB CONC 34.8 g/dL (32.0-36.0); MEAN CORPUSCULAR VOLUME 87.1 fL (81.0-99.0); MEAN PLATELET VOLUME 9.5 fL (7.9-10.8); MONOCYTES # (AUTO) 0.2 10^3/uL (0.0-1.0); MONOCYTES % (AUTO) 2.2 %; NEUTROPHILS # (AUTO) 8.4 10^3/uL (1.5-6.6); NEUTROPHILS % (AUTO) 89.2 %; PLT - PLATELET COUNT 283 10^3/uL (130-450); RED BLOOD COUNT 4.26 10^6/uL (4.20-5.40); RED CELL DISTRIBUTION WIDTH 12.3 % (12.0-15.0); WHITE BLOOD COUNT 9.4 x10^3/uL (4.8-10.8)
[2021-09-09 06:04] LABS: CALCIUM 8.8 mg/dL (8.5-10.3); PHOSPHORUS 2.8 mg/dL (2.5-4.6); POTASSIUM 4.4 mmol/L (3.5-5.0)
[2021-09-09] MEDS: polyethylene glycoL 3350 17 GM PACKET PO SCH (09:34)
[2021-09-09] MEDS: SERTRALINE 50 MG TABLET PO SCH (09:35)
[2021-09-09] MEDS: SODIUM CHLORIDE FLUSH 0.9% 10 ML SYRINGE IVP SCH ×2 (09:35→16:35)
[2021-09-09] MEDS: NICOTINE 7 MG PATCH TOP SCH (09:35)
[2021-09-09 09:36] LABS: % IRON SATURATION 14 % (20-50); IRON 35 ug/dL (28-170); TOTAL IRON BINDING CAPACITY 249 ug/dL (250-450); TRANSFERRIN 178 mg/dL (192-382)
[2021-09-09] MEDS: guaiFENesin/CODEINE 5 ML UDC PO PRN ×2 (09:37→16:42)
[2021-09-09] MEDS: KETOROLAC 15 MG/ML VIAL IVP PRN ×2 (09:37→16:35)
[2021-09-09] MEDS: SODIUM CHLORIDE FLUSH 0.9% 10 ML SYRINGE IVP PRN ×2 (13:31→21:41)
--- NOTE | 2021-09-09 14:54 | PROVIDER PROGRESS NOTE ---
Subjective - Prog Note Date Prog Note Date: 09/09/21 Prog Note Time: 14:52 - Subjective Subjective: I was able to review her old records and find out that Renny Triplett, a temporary provider that was here last year, was the one that did an EGD. She has been stating that no matter how many times she call she can never get a hold of them. He is no longer with her organization so her phone calls may have been for a person that was not there anymore. In either case, the EGD on July 20, 2020 showed pyloric stenosis. Pneumatic dilation was done. There was no duodenitis. She had diffuse gastritis and gastropathy. A minimal hiatal hernia. Pathology had Helicobacter pylori gastritis present. There was no metaplasia or dysplasia of the duodenum, antrum, gastric body. She had squamous mucosa with mild inflammation and reactive changes suggestive of reflux. No eosinophilic esophagitis or goblet cell metaplasia. From her emphysema perspective she feels better. Less cough. She is able to talk more freely. But she has left-sided constant chest pain that wraps around the epigastrium that hurts with deep inspiration. Her O2 requirement is now down to 1 L and she saturates 93%. Current Medications - Current Medications Current Medications: Active Medications Acetaminophen (Acetaminophen 325 Mg Tablet) 650 mg PO Q4HR PRN PRN Reason: Pain 1 to 4, or Fever Last Admin: 09/08/21 23:38 Dose: 650 mg Albuterol (Albuterol Neb 2.5 Mg/3 Ml) 2.5 mg INH Q2HR PRN PRN Reason: Wheezing Albuterol/Ipratropium (Ipratropium/Albuterol 3 Ml Neb) 3 ml INH RTQ6H SAIRA Last Admin: 09/09/21 13:06 Dose: 3 ml Guaifenesin/Codeine Phosphate (Guaifenesin/Codeine 5 Ml Udc) 5 ml PO Q6HR PRN PRN Reason: Cough Last Admin: 09/09/21 09:37 Dose: 5 ml Ketorolac Tromethamine (Ketorolac 15 Mg/Ml Vial) 15 mg IVP Q6HR PRN PRN Reason: PAIN Stop: 09/14/21 09:16 Last Admin: 09/09/21 09:37 Dose: 15 mg Methylprednisolone (Methylprednisolone Succinate 40 Mg/Ml Vial) 40 mg IVP TID SAIRA Last Admin: 09/09/21 13:31 Dose: 40 mg Multivitamins/Minerals (Multivitamin W/Minerals Tablet) 1 tab PO DAILYWM [facility] Nicotine (Nicotine 7 Mg Patch) 1 patch TOP DAILY [facility] Last Admin: 09/09/21 09:35 Dose: 1 patch Ondansetron HCl (Ondansetron Odt 4 Mg Tablet) 4 mg TL Q6HR PRN PRN Reason: Nausea / Vomiting Ondansetron HCl (Ondansetron 4 Mg/2 Ml Vial) 4 mg IVP Q6HR PRN PRN Reason: Nausea / Vomiting Oxycodone HCl (Oxycodone 5 Mg Tablet) 5 mg PO Q4HR PRN PRN Reason: Pain 5 to 7 Last Admin: 09/08/21 23:38 Dose: 5 mg Polyethylene Glycol (Polyethylene Glycol 3350 17 Gm Packet) 17 gm PO DAILY [facility] Last Admin: 09/09/21 09:34 Dose: 17 gm Saccharomyces Boulardii (Saccharomyces Boulardii 250 Mg Capsule) 250 mg PO BIDWM [facility] Sertraline HCl (Sertraline 50 Mg Tablet) 100 mg PO DAILY [facility] Last Admin: 09/09/21 09:35 Dose: 100 mg Sodium Chloride (Sodium Chloride Flush 0.9% 10 Ml Syringe) 10 ml IVP PRN PRN PRN Reason: NEEDED PER PROVIDER ORDERS Last Admin: 09/09/21 13:31 Dose: 10 ml Sodium Chloride (Sodium Chloride Flush 0.9% 10 Ml Syringe) 10 ml IVP 0100,0900,1700 [facility] Last Admin: 09/09/21 09:35 Dose: 10 ml Trazodone HCl (Trazodone 50 Mg Tablet) 150 mg PO QPM [facility] Last Admin: 09/08/21 20:54 Dose: 150 mg Fluticasone/Salmeterol [Advair 250-50 Diskus] 1 puffs INH BID 07/09/20 Ipratropium/Albuterol [Duoneb] 3 ml INH QID PRN 07/09/20 Albuterol Sulfate [Proair Hfa Inhaler] 2 puffs INH Q4H PRN 09/08/21 Meloxicam [Mobic] 7.5 mg PO BID 09/08/21 Sertraline HCl 100 mg PO DAILY 09/08/21 Trazodone HCl 150 mg PO QPM 09/08/21 Objective - Vital Signs/Intake & Output Reviewed Vital Signs: Yes Vital Signs: Vital Signs x48h Temp Pulse Pulse Resp BP Pulse Ox 09/09/21 13:07 37 C 80 20 158/81 H 93 09/09/21 13:05 87 21 09/09/21 08:15 93 16 09/09/21 07:20 36.5 C 76 20 127/72 96 Intake & Output: Intake & Output 09/06/21 09/07/21 09/08/21 09/09/21 23:59 23:59 23:59 23:59 Intake Total 1640 2300 Output Total 300 950 Balance 1340 1350 - Objective General Appearance: positive: No acute distress, Alert, Other (Thin white female looks older than stated age, able to carry on a complete conversation and s pontaneously laugh without shortness of breath. However it does induce coughing spasms. Still quite a bit of nasal congestion and chest congestion.) Eyes Bilateral: positive: PERRL, EOMI ENT: positive: Pharynx nml, Other (Missing teeth, loose teeth, gingivitis) Neck: positive: No JVD. negative: Stiff neck Respiratory: positive: No respiratory distress, Wheezes. negative: Rales, Rhonchi Cardiovascular: positive: Regular rate & rhythm. negative: Gallop/S4, Friction rub Abdomen: positive: Non-tender, No organomegaly, Nml bowel sounds, No distention Skin: positive: Warm, Dry Extremities: positive: Full ROM, No pedal edema Neurologic/Psychiatric: positive: Oriented x3, CN's nml (2-12), Motor nml - Lab Results Fish Bones: 09/09/21 05:38 09/09/21 05:38 Other Labs: Lab Results x24hrs 09/09/21 09/09/21 09/09/21 Range/Units 05:38 05:38 05:38 WBC (4.8-10.8) x10^3/uL RBC (4.20-5.40) 10^6/uL Hgb (12.0-16.0) g/dL Hct (37.0-47.0) % MCV (81.0-99.0) fL MCH (27.0-31.0) pg MCHC (32.0-36.0) g/dL RDW (12.0-15.0) % Plt Count (130-450) 10^3/uL MPV (7.9-10.8) fL Neut # (Auto) (1.5-6.6) 10^3/uL Lymph # (Auto) (1.5-3.5) 10^3/uL Barry # (Auto) (0.0-1.0) 10^3/uL Eos # (Auto) (0.0-0.7) 10^3/uL Baso # (Auto) (0.0-0.1) 10^3/uL Absolute Nucleated RBC x10^3/uL Nucleated RBC % /100WBC ESR (0-30) mm/Hr Sodium (135-145) mmol/L Potassium (3.5-5.0) mmol/L Chloride (101-111) mmol/L Carbon Dioxide (21-32) mmol/L Anion Gap (6-13) BUN (6-20) mg/dL Creatinine (0.4-1.0) mg/dL Estimated GFR (MDRD) (>89) Glucose (70-100) mg/dL Calcium (8.5-10.3) mg/dL Phosphorus (2.5-4.6) mg/dL Iron 35 (28-170) ug/dL TIBC 249 L (250-450) ug/dL % Saturation 14 L (20-50) % Transferrin 178 L (192-382) mg/dL Ferritin 126.4 (11.0-306.8) ng/mL Amylase (28-100) U/L Lipase (22-51) U/L Vitamin B12 341 (180-914) pg/mL SARS-CoV-2 (PCR) 09/09/21 09/09/21 09/09/21 Range/Units 05:38 05:38 05:38 WBC 9.4 (4.8-10.8) x10^3/uL RBC 4.26 (4.20-5.40) 10^6/uL Hgb 12.9 (12.0-16.0) g/dL Hct 37.1 (37.0-47.0) % MCV 87.1 (81.0-99.0) fL MCH 30.3 (27.0-31.0) pg MCHC 34.8 (32.0-36.0) g/dL RDW 12.3 (12.0-15.0) % Plt Count 283 (130-450) 10^3/uL MPV 9.5 (7.9-10.8) fL Neut # (Auto) 8.4 H (1.5-6.6) 10^3/uL Lymph # (Auto) 0.8 L (1.5-3.5) 10^3/uL Barry # (Auto) 0.2 (0.0-1.0) 10^3/uL Eos # (Auto) 0.0 (0.0-0.7) 10^3/uL Baso # (Auto) 0.0 (0.0-0.1) 10^3/uL Absolute Nucleated RBC 0.00 x10^3/uL Nucleated RBC % 0.0 /100WBC ESR 21 (0-30) mm/Hr Sodium 139 (135-145) mmol/L Potassium 4.4 (3.5-5.0) mmol/L Chloride 108 (101-111) mmol/L Carbon Dioxide 22 (21-32) mmol/L Anion Gap 9.0 (6-13) BUN 23 H (6-20) mg/dL Creatinine 1.0 (0.4-1.0) mg/dL Estimated GFR (MDRD) 57 L (>89) Glucose 143 H (70-100) mg/dL Calcium 8.8 (8.5-10.3) mg/dL Phosphorus 2.8 (2.5-4.6) mg/dL Iron (28-170) ug/dL TIBC (250-450) ug/dL % Saturation (20-50) % Transferrin (192-382) mg/dL Ferritin (11.0-306.8) ng/mL Amylase 49 (28-100) U/L Lipase 35 (22-51) U/L Vitamin B12 (180-914) pg/mL SARS-CoV-2 (PCR) 09/08/21 Range/Units 14:00 WBC (4.8-10.8) x10^3/uL RBC (4.20-5.40) 10^6/uL Hgb (12.0-16.0) g/dL Hct (37.0-47.0) % MCV (81.0-99.0) fL MCH (27.0-31.0) pg MCHC (32.0-36.0) g/dL RDW (12.0-15.0) % Plt Count (130-450) 10^3/uL MPV (7.9-10.8) fL Neut # (Auto) (1.5-6.6) 10^3/uL Lymph # (Auto) (1.5-3.5) 10^3/uL Barry # (Auto) (0.0-1.0) 10^3/uL Eos # (Auto) (0.0-0.7) 10^3/uL Baso # (Auto) (0.0-0.1) 10^3/uL Absolute Nucleated RBC x10^3/uL Nucleated RBC % /100WBC ESR (0-30) mm/Hr Sodium (135-145) mmol/L Potassium (3.5-5.0) mmol/L Chloride (101-111) mmol/L Carbon Dioxide (21-32) mmol/L Anion Gap (6-13) BUN (6-20) mg/dL Creatinine (0.4-1.0) mg/dL Estimated GFR (MDRD) (>89) Glucose (70-100) mg/dL Calcium (8.5-10.3) mg/dL Phosphorus (2.5-4.6) mg/dL Iron (28-170) ug/dL TIBC (250-450) ug/dL % Saturation (20-50) % Transferrin (192-382) mg/dL Ferritin (11.0-306.8) ng/mL Amylase (28-100) U/L Lipase (22-51) U/L Vitamin B12 (180-914) pg/mL SARS-CoV-2 (PCR) NOT DETECTED ABX Reporting Has patient been on IV antibiotics over the past 48 hours?: No Assessment/Plan - Problem List (1) Acute exacerbation of COPD with asthma Impression: Patient presents with shortness of breath, cough, sinus and chest congestion for the last 3 days is been getting worse. 2 episodes of hives. Unresponsive to her nebulizers and the night before admission feels like she is getting hives. She is COVID vaccinated. Still smokes. In the ER she has a negative chest x- ray, COVID-negative. But has new hypoxemia not responding to nebulizers. CBC does not have eosinophilia. Since treatment, she has improved with her lung exam. Less O2 requirement. Had another episode of hives last night documented by nursing with pictures. Plan: Solu-Medrol 40 mg IV push every 8 hours x3 doses completed. Nebulizers at a fixed schedule of every 6 hours to continue Albuterol nebulizer as needed every 2 hours to continue Inhaled Perforomist and inhaled budesonide To remain in OBV status per Case Management. (2) Hypoxia Conclusion/Plan: New for her. This is the main indication we are placing her in observation. Hopefully this will resolve with resolution of her bronchospasm. There is no pneumonia on chest x-ray. No congestive heart failure. No leg edema or Homans' sign. Plan: Keep in observation status, continue treatment until hypoxia resolves. (3) Depression with anxiety Conclusion/Plan: Zoloft and trazodone resumed. (4) Moderate protein-calorie malnutrition Conclusion/Plan: On examination she is cachectic. Thin. Most recently states she is lost 20 pounds after losing 60 to 80 pounds. She really cannot explain her lack of appetite. Nutrition services is working with her. They can only document a 10 pound weight loss between the last time she was seen and today. Nutrition services asked her he may need to add a few more labs to the work-up. That is done. She is on supplemental Ensure. And now that I have reviewed her records and find her to have pyloric stenosis, she will need another EGD. She will also need help in completing therapy for H. pylori gastritis since she did not complete it last time. (5) Abnormal intestinal absorption Conclusion/Plan: Prior to 6 years ago she felt like her appetite and bowels were normal. 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 So I do not think she has liver disease or cholestasis. I talked to her about chronic pancreatitis, cystic fibrosis, Schwachman syndrome, Michela- Arrington syndrome, celiac disease, Inflammatory bowel disease. None of these ring a cheema for her. She is very clear the change happened 6 years ago before moving to [facility]. She has never had gastric surgery or pancreatic resection. Although she has defecation of just clear liquid water she denies that this could be urine in her bowel. She also denies stool in her urine so I doubt fis roland. She has no history of scleroderma. She is not ingesting a lot of sorbitol. If she is having significant absorption, her CBC remains normal, magnesium is normal. She has no anemia, no microcytosis or macrocytosis.Iron studies show iron levels of 35. TIBC is 249. Ferritin is 126. Hi this is was hoping to talk to Dr. Seema Navarro about one of her patients that I discharge cannot contact her associate medical director then she will I wanted Plan: Recommend colonoscopy with biopsy, as well as upper GI with jejunal aspirate. This will need to be outpatient Phosphorus, B12, folate, vitamin D, zinc, ESR, lipase, amylase although I doubt Celiac would "appear" 6 years ago, will order Anti TTG. stool C&S, O&P
[2021-09-09] MEDS: SACCHAROMYCES BOULARDII 250 MG CAPSULE PO SCH (16:34)
[2021-09-09] MEDS: oxyCODONE 5 MG TABLET PO PRN ×2 (16:35→21:40)
[2021-09-09] MEDS: ACETAMINOPHEN 325 MG TABLET PO PRN (21:39)
[2021-09-09] MEDS: traZODone 50 MG TABLET PO SCH (21:40)
[2021-09-10] MEDS: SODIUM CHLORIDE FLUSH 0.9% 10 ML SYRINGE IVP SCH ×4 (00:56→23:45)
[2021-09-10] MEDS: SODIUM CHLORIDE FLUSH 0.9% 10 ML SYRINGE IVP PRN ×2 (06:26→22:06)
[2021-09-10] MEDS: methylPREDNISolone SUCCINATE 40 MG/ML VIAL IVP SCH ×3 (06:26→22:06)
[2021-09-10] MEDS: IPRATROPIUM/ALBUTEROL 3 ML NEB INH SCH ×4 (07:11→23:45)
[2021-09-10] MEDS: SACCHAROMYCES BOULARDII 250 MG CAPSULE PO SCH ×2 (07:58→17:01)
[2021-09-10] MEDS: guaiFENesin/CODEINE 5 ML UDC PO PRN ×3 (07:58→20:32)
[2021-09-10] MEDS: MULTIVITAMIN W/MINERALS TABLET PO SCH (07:59)
[2021-09-10] MEDS: polyethylene glycoL 3350 17 GM PACKET PO SCH (07:59)
[2021-09-10] MEDS ORDERED: MORPHINE 2 MG/ML CARPUJECT IVP PRN (08:20)
[2021-09-10] MEDS: SERTRALINE 50 MG TABLET PO SCH (08:44)
[2021-09-10] MEDS: NICOTINE 7 MG PATCH TOP SCH (08:44)
[2021-09-10] MEDS: oxyCODONE 5 MG TABLET PO PRN ×3 (13:25→22:06)
[2021-09-10] MEDS: ACETAMINOPHEN 325 MG TABLET PO PRN ×3 (13:25→22:05)
--- NOTE | 2021-09-10 13:30 | PROVIDER PROGRESS NOTE ---
Subjective - Prog Note Date Prog Note Date: 09/10/21 Prog Note Time: 13:29 - Subjective Pt reports feeling: Worse Subjective: She is in tears. She says that the cough has gotten so severe. Nonstop, spasmodic, causes her to gag. She also has an old rib fracture on rib film and she says she has stabbing pain that wraps around her around the location of where this old rib fracture was. Nonproductive. She feels like she is having to bring up and cannot. Due to spasms of wheezing. No more hives since yesterday to today. Objective - Vital Signs/Intake & Output Vital Signs: Vital Signs x48h Temp Pulse Pulse Resp BP Pulse Ox 09/10/21 13:05 74 16 09/10/21 12:48 37.1 C 76 20 141/71 H 92 09/10/21 09:10 36.5 C 85 20 143/86 H 93 09/10/21 07:11 88 16 Intake & Output: Intake & Output 09/07/21 09/08/21 09/09/21 09/10/21 23:59 23:59 23:59 23:59 Intake Total 1640 2770 1000 Output Total 300 1150 500 Balance 1340 1620 500 - Lab Results Fish Bones: 09/09/21 05:38 09/09/21 05:38 Other Labs: Lab Results x24hrs 09/09/21 Range/Units 05:38 Vitamin D 25-Hydroxy 43.6 (30.0-100.0) ng/mL Assessment/Plan - Problem List (1) Acute exacerbation of COPD with asthma Impression: .Patient presents with shortness of breath, cough, sinus and chest congestion for the last 3 days is been getting worse. 2 episodes of hives. Unresponsive to her nebulizers and the night before admission feels like she is getting hives. She is COVID vaccinated. Still smokes. In the ER she has a negative chest x- ray, COVID-negative. But has new hypoxemia not responding to nebulizers. CBC does not have eosinophilia. Since treatment, she has improved with her lung exam. Less O2 requirement. Had another episode of hives last night documented by nursing with pictures. Plan: When she first came in, she improved with lung exam. I have given her 3 doses of Solu-Medrol. I had thought the order dropped off and she was off it but she has been on it. O2 requirement was dropping. She had another episode of hives on the evening of September 08. None since. Today, much worse exam. Coughing, tearful, short of breath, wheezing. The pain of the coughing has exacerbated her old rib fracture. Plan: Increase solumedrol to 80 mg tid. Continue nebulizers at a fixed schedule, albuterol as needed, continue Perforomist and inhaled budesonide, changed to inpatient status. Add morphine 2 mg IV every 2 to help with respiratory distress and with the pain. There is some limited studies that show that a macrolide such as azithromycin will reduce length of stay and improve symptoms even though the patient does not have clinical infection. I will add azithromycin as well. (2) Hypoxia Conclusion/Plan: Hypoxia was new for her on admission. She was requiring 3 L to maintain her O2 sats. When they gave her steroids and nebs her O2 requirement started going down. Yesterday she needed 1 L. In spite of COPD exacerbation today, she is down to 92 or 93% on room air. No need for oxygen. Plan: Change to inpatient status. Continue treatment as above. Continue to monitor for hypoxia. (3) Depression with anxiety Conclusion/Plan: Zoloft and trazodone resumed. (4) Moderate protein-calorie malnutrition Conclusion/Plan: On examination she is cachectic. Thin. Most recently states she is lost 20 pounds after losing 60 to 80 pounds. She really could not explain her lack of appetite. Nutrition services is working with her. They can only document a 10 pound weight loss between the last time she was seen and today. Reviewing her chart, I believe her problem may be due to incompletely treated ulcer disease or pyloric stenosis. Nutrition services had me do a vitamin D level and it is low normal. She is 43.6 where our lab has a low normal at 30. She is on supplemental Ensure. Plan: Get her to the outpatient evaluation for pyloric stenosis and in adequately treated H. pylori (5) Abnormal intestinal absorption Conclusion/Plan: Prior to 6 years ago she felt like her appetite and bowels were normal. 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 So I do not think she has liver disease or cholestasis. I talked to her about chronic pancreatitis, cystic fibrosis, Schwachman syndrome, Michela- Arrington syndrome, celiac disease, Inflammatory bowel disease. None of these ring a cheema for her. She is very clear the change happened 6 years ago before moving to [facility]. She has never had gastric surgery or pancreatic resection. Although she has defecation of just clear liquid water she denies that this coul d be urine in her bowel. She also denies stool in her urine so I doubt fistula. She has no history of scleroderma. She is not ingesting a lot of sorbitol. If she is having significant absorption, her CBC remains normal, magnesium is normal. She has no anemia, no microcytosis or macrocytosis.Iron studies show iron levels of 35. TIBC is 249. Ferritin is 126. Amylase and lipase are normal. Vitamin D level is low normal at 43. Vitamin B12 is normal at 341. Phosphorus 2.8. Zinc and celiac panel pending. Plan: Recommend colonoscopy with biopsy, as well as upper GI with jejunal aspirate. This will need to be outpatient stool C&S, O&P ordered. (6) Pyloric stenosis in adult Impression: With a history of gastritis. No follow-up since the first time of her dilation. On review of systems she describes lack of hunger, and sometimes retention of even simple water. But then she also describes drinking water and 20 minutes later she is defecating clear water. I mentioned this to general surgery, Dr. Danielson, yesterday. He feels that that is not an inpatient problem that they need to handle. If we could please refer to the outpatient setting to get follow-up. The initial surgeon who saw her was Dr. Renny Claire and he is no longer with the clinic. I will be making referral to Dr. Parker's office or Dr. Lauren to see her in follow-up. Dr. Danielson feel that it is a procedure that he is not comfortable with and would not be doing at this hospital.
[2021-09-10] MEDS: AZITHROMYCIN INJ 500 MG in SODIUM CHLORIDE 0.9% 250 ML IV SCH (14:19)
[2021-09-10] MEDS: KETOROLAC 15 MG/ML VIAL IVP PRN (15:58)
[2021-09-10 17:08] LABS: DEAMIDATED GLIADIN IGA 4 units (0-19); DEAMIDATED GLIADIN IGG <1 units (0-19); ENDOMYSIAL IGA Negative (Negative); IMMUNOGLOBULIN A 340 mg/dL (87-352); T-TRANSGLUTAMINASE (TTG) IGA <2 U/mL (0-3); T-TRANSGLUTAMINASE (TTG) IGG 5 U/mL (0-5)
[2021-09-10] MEDS: traZODone 50 MG TABLET PO SCH (22:04)
[2021-09-11] MEDS: methylPREDNISolone SUCCINATE 40 MG/ML VIAL IVP SCH ×3 (05:21→22:10)
[2021-09-11] MEDS: SODIUM CHLORIDE FLUSH 0.9% 10 ML SYRINGE IVP PRN ×3 (05:21→22:11)
[2021-09-11] MEDS: oxyCODONE 5 MG TABLET PO PRN ×4 (05:33→22:10)
[2021-09-11] MEDS: IPRATROPIUM/ALBUTEROL 3 ML NEB INH SCH ×4 (07:18→20:06)
[2021-09-11 08:18] LABS: BASOPHILS % (AUTO) 0.1 %; EOSINOPHILS % (AUTO) 0.1 %; HCT - HEMATOCRIT 39.9 % (37.0-47.0); HGB - HEMOGLOBIN 13.7 g/dL (12.0-16.0); LYMPHOCYTES # (AUTO) 0.6 10^3/uL (1.5-3.5); LYMPHOCYTES % (AUTO) 5.6 %; MEAN CORPUSCULAR HEMOGLOBIN 30.8 pg (27.0-31.0); MEAN CORPUSCULAR HGB CONC 34.3 g/dL (32.0-36.0); MEAN CORPUSCULAR VOLUME 89.7 fL (81.0-99.0); MEAN PLATELET VOLUME 9.6 fL (7.9-10.8); MONOCYTES # (AUTO) 0.2 10^3/uL (0.0-1.0); MONOCYTES % (AUTO) 1.4 %; NEUTROPHILS # (AUTO) 10.4 10^3/uL (1.5-6.6); NEUTROPHILS % (AUTO) 91.9 %; PLT - PLATELET COUNT 299 10^3/uL (130-450); RED BLOOD COUNT 4.45 10^6/uL (4.20-5.40); RED CELL DISTRIBUTION WIDTH 12.4 % (12.0-15.0); WHITE BLOOD COUNT 11.4 x10^3/uL (4.8-10.8)
[2021-09-11] MEDS: polyethylene glycoL 3350 17 GM PACKET PO SCH (08:22)
[2021-09-11] MEDS: SERTRALINE 50 MG TABLET PO SCH (08:22)
[2021-09-11] MEDS: SACCHAROMYCES BOULARDII 250 MG CAPSULE PO SCH ×2 (08:22→17:53)
[2021-09-11] MEDS: SODIUM CHLORIDE FLUSH 0.9% 10 ML SYRINGE IVP SCH ×2 (08:22→15:56)
[2021-09-11] MEDS: NICOTINE 7 MG PATCH TOP SCH (08:22)
[2021-09-11] MEDS: MULTIVITAMIN W/MINERALS TABLET PO SCH (08:22)
[2021-09-11] MEDS: AZITHROMYCIN INJ 500 MG in SODIUM CHLORIDE 0.9% 250 ML IV SCH (08:23)
[2021-09-11 08:24] LABS: CALCIUM 9.5 mg/dL (8.5-10.3); POTASSIUM 4.3 mmol/L (3.5-5.0)
--- NOTE | 2021-09-11 12:10 | PROVIDER PROGRESS NOTE ---
Subjective - Prog Note Date Prog Note Date: 09/11/21 Prog Note Time: 12:08 - Subjective Subjective: She is better than yesterday. The previous rib fracture she has it is making her miserable because the cough will not stop. She does feel like her chest is less tight and the phlegm is loose and she is able to bring up more secretions than she ever has but the cough still continues in spite of the Robitussin-AC and occasional morphine. We spent quite a bit of time discussing the pyloric stenosis she was diagnosed with. And her history of not tolerating much food or liquid. She tells me that she really does want to follow-up with that. She just could not get through to the surgical office. She ask if she can see Dr. Banegas. She has been told that he would be someone she would want to see. I told her that I could make that referral. Current Medications - Current Medications Current Medications: Active Medications Acetaminophen (Acetaminophen 325 Mg Tablet) 650 mg PO Q4HR PRN PRN Reason: Pain 1 to 4, or Fever Last Admin: 09/10/21 22:05 Dose: 650 mg Albuterol (Albuterol Neb 2.5 Mg/3 Ml) 2.5 mg INH Q2HR PRN PRN Reason: Wheezing Albuterol/Ipratropium (Ipratropium/Albuterol 3 Ml Neb) 3 ml INH RTQ6H [facility] Last Admin: 09/11/21 07:18 Dose: 3 ml Guaifenesin/Codeine Phosphate (Guaifenesin/Codeine 5 Ml Udc) 5 ml PO Q6HR PRN PRN Reason: Cough Last Admin: 09/10/21 20:32 Dose: 5 ml Azithromycin 500 mg/ Sodium (Chloride) 250 mls @ 250 mls/hr IV DAILY [facility] Stop: 09/12/21 09:59 Last Infusion: 09/11/21 11:58 Dose: Infused Ketorolac Tromethamine (Ketorolac 15 Mg/Ml Vial) 15 mg IVP Q6HR PRN PRN Reason: PAIN Stop: 09/14/21 09:16 Last Admin: 09/10/21 15:58 Dose: 15 mg Methylprednisolone (Methylprednisolone Succinate 40 Mg/Ml Vial) 80 mg IVP TID [facility] Last Admin: 09/11/21 05:21 Dose: 80 mg Morphine Sulfate (Morphine 2 Mg/Ml Carpuject) 2 mg IVP Q2HR PRN PRN Reason: Shortness of Air/Wheezing Last Admin: 09/10/21 08:44 Dose: 2 mg Multivitamins/Minerals (Multivitamin W/Minerals Tablet) 1 tab PO DAILYWM [facility] Last Admin: 09/11/21 08:22 Dose: 1 tab Nicotine (Nicotine 7 Mg Patch) 1 patch TOP DAILY [facility] Last Admin: 09/11/21 08:22 Dose: 1 patch Ondansetron HCl (Ondansetron Odt 4 Mg Tablet) 4 mg TL Q6HR PRN PRN Reason: Nausea / Vomiting Ondansetron HCl (Ondansetron 4 Mg/2 Ml Vial) 4 mg IVP Q6HR PRN PRN Reason: Nausea / Vomiting Oxycodone HCl (Oxycodone 5 Mg Tablet) 5 mg PO Q4HR PRN PRN Reason: Pain 5 to 7 Last Admin: 09/11/21 05:33 Dose: 5 mg Polyethylene Glycol (Polyethylene Glycol 3350 17 Gm Packet) 17 gm PO DAILY [facility] Last Admin: 09/11/21 08:22 Dose: 17 gm Saccharomyces Boulardii (Saccharomyces Boulardii 250 Mg Capsule) 250 mg PO BIDWM [facility] Last Admin: 09/11/21 08:22 Dose: 250 mg Sertraline HCl (Sertraline 50 Mg Tablet) 100 mg PO DAILY [facility] Last Admin: 09/11/21 08:22 Dose: 100 mg Sodium Chloride (Sodium Chloride Flush 0.9% 10 Ml Syringe) 10 ml IVP PRN PRN PRN Reason: NEEDED PER PROVIDER ORDERS Last Admin: 09/11/21 05:21 Dose: 10 ml Sodium Chloride (Sodium Chloride Flush 0.9% 10 Ml Syringe) 10 ml IVP 0100,0900,1700 [facility] Last Admin: 09/11/21 08:22 Dose: 10 ml Trazodone HCl (Trazodone 50 Mg Tablet) 150 mg PO QPM [facility] Last Admin: 09/10/21 22:04 Dose: 150 mg Fluticasone/Salmeterol [Advair 250-50 Diskus] 1 puffs INH BID 07/09/20 Ipratropium/Albuterol [Duoneb] 3 ml INH QID PRN 07/09/20 Albuterol Sulfate [Proair Hfa Inhaler] 2 puffs INH Q4H PRN 09/08/21 Meloxicam [Mobic] 7.5 mg PO BID 09/08/21 Sertraline HCl 100 mg PO DAILY 09/08/21 Trazodone HCl 150 mg PO QPM 09/08/21 Objective - Vital Signs/Intake & Output Reviewed Vital Signs: Yes Vital Signs: Vital Signs x48h Temp Pulse Pulse Resp BP BP Pulse Ox 09/11/21 08:20 154/76 H 95 09/11/21 08:14 36.7 C 79 20 169/95 H 90 L 09/11/21 07:19 80 16 09/11/21 06:20 170/94 H 166/91 H 09/11/21 05:00 36.5 C 67 16 172/83 H 93 Intake & Output: Intake & Output 09/08/21 09/09/21 09/10/21 09/11/21 23:59 23:59 23:59 23:59 Intake Total 1640 2770 2970 750 Output Total 300 1150 1425 700 Balance 1340 1620 1545 50 - Objective General Appearance: positive: Alert, Mild distress (Cough, wheezing, and phlegm production), Other (Tears are resolved. Yesterday part of the problem was that she coughed up the tooth. She tells me that today "at least I have not lost ano ther tooth") Eyes Bilateral: positive: PERRL, EOMI ENT: positive: Pharynx nml, Other (Rhinorrhea, nasal tone of voice) Neck: positive: No JVD. negative: Stiff neck Respiratory: positive: No respiratory distress, Wheezes, Rhonchi (Inspiratory whistling and gurgling phlegm), Other (Is able to speak without increased respiratory effort but it induces coughing spasms. No use of accessory muscles. She is not tripoding. She has been down to room air since yesterday. 95% currently). negative: Rales Cardiovascular: positive: Regular rate & rhythm. negative: Gallop/S4, Friction rub Abdomen: positive: Non-tender, No organomegaly, Nml bowel sounds, No distention Skin: positive: No rash, Warm, Dry Extremities: positive: Full ROM, No pedal edema Neurologic/Psychiatric: positive: Oriented x3, CN's nml (2-12), Motor nml - Lab Results Fish Bones: 09/11/21 08:10 09/11/21 08:10 Other Labs: Lab Results x24hrs 09/11/21 09/11/21 09/09/21 Range/Units 08:10 08:10 05:38 WBC 11.4 H (4.8-10.8) x10^3/uL RBC 4.45 (4.20-5.40) 10^6/uL Hgb 13.7 (12.0-16.0) g/dL Hct 39.9 (37.0-47.0) % MCV 89.7 (81.0-99.0) fL MCH 30.8 (27.0-31.0) pg MCHC 34.3 (32.0-36.0) g/dL RDW 12.4 (12.0-15.0) % Plt Count 299 (130-450) 10^3/uL MPV 9.6 (7.9-10.8) fL Neut # (Auto) 10.4 H (1.5-6.6) 10^3/uL Lymph # (Auto) 0.6 L (1.5-3.5) 10^3/uL Calvert # (Auto) 0.2 (0.0-1.0) 10^3/uL Eos # (Auto) 0.0 (0.0-0.7) 10^3/uL Baso # (Auto) 0.0 (0.0-0.1) 10^3/uL Absolute Nucleated RBC 0.00 x10^3/uL Nucleated RBC % 0.0 /100WBC Sodium 138 (135-145) mmol/L Potassium 4.3 (3.5-5.0) mmol/L Chloride 101 (101-111) mmol/L Carbon Dioxide 25 (21-32) mmol/L Anion Gap 12.0 (6-13) BUN 30 H (6-20) mg/dL Creatinine 1.0 (0.4-1.0) mg/dL Estimated GFR (MDRD) 57 L (>89) Glucose 150 H (70-100) mg/dL Calcium 9.5 (8.5-10.3) mg/dL IgA 340 (87-352) mg/dL Endomysial IgA Ab Negative (Negative) Tiss Transglutamin IgG 5 (0-5) U/mL Tiss Transglutamin IgA <2 (0-3) U/mL Anti-Gliadin IgG Ab <1 (0-19) units Anti-Gliadin IgA Ab 4 (0-19) units ABX Reporting Has patient been on IV antibiotics over the past 48 hours?: Yes Assessment/Plan - Problem List (1) Acute exacerbation of COPD with asthma Impression: .Patient presents with shortness of breath, cough, sinus and chest congestion for the l3 days [employer] that had been getting worse. 2 episodes of hives. Unresponsive to her nebulizers and the night before admission feels like she is getting hives. She is COVID vaccinated. Still smokes. In the ER she has a negative chest x-ray, COVID-negative. But has new hypoxemia not responding to nebulizers. CBC does not have eosinophilia. When she first came in, she improved with lung exam after our treatment. I had given her 3 doses of Solu-Medrol. I had thought the order dropped off and she was off it but she has been on it. O2 requirement was dropping. She had another episode of hives on the evening of September 08. None since. 09/10 much worse exam. Coughing, tearful, short of breath, wheezing. Loss a tooth with one of her episodes of coughing. The pain of the coughing has exacerbated her old rib fracture. I increased solumedrol to 80 mg tid, Continued nebulizers at a fixed schedule, albuterol as needed, continued Perforomist and inhaled budesonide, Added morphine 2 mg IV every 2 to help with respiratory distress and with the pain. There is some limited studies that show that a macrolide such as azithromycin will reduce length of stay and improve symptoms even though the patient does not have clinical infection. I added azithromycin as well. There has been improvement in pain and oxygen requirement but still with quite a bit of rhonchi and wheezing today. She is "looser" and bring up phlegm more easily. Plan: Stay on current treatment and if improved tomorrow change to po meds. (2) Hypoxia resolved Conclusion/Plan: Hypoxia was new for her on admission. She was requiring 3 L to maintain her O2 sats. When they gave her steroids and nebs her O2 requirement started going down. In spite of COPD exacerbation 09/10, she was down to 92 or 93% on room air. No need for oxygen. Plan: Continue treatment as above. Continue to monitor for hypoxia. (3) Depression with anxiety Conclusion/Plan: Zoloft and trazodone resumed. (4) Moderate protein-calorie malnutrition Conclusion/Plan: On examination she is cachectic. Thin. Most recently states she is lost 20 pounds after losing 60 to 80 pounds. She really could not explain her lack of appetite. Nutrition services is working with her. They can only document a 10 pound weight loss between the last time she was seen and today. Reviewing her chart, I believe her problem may be due to incompletely treated ulcer disease or pyloric stenosis. Nutrition services had me do a vitamin D level and it is low normal. She is 43.6 where our lab has a low normal at 30. She is on supplemental Ensure. Plan: Get her to the outpatient evaluation for pyloric stenosis and in adequately treated H. pylori. She would like to see Dr. Banegas. I did also recommend Dr. Prieto but the patient would prefer former since he was mentioned by friends as the surgeon to see. (5) Abnormal intestinal absorption Conclusion/Plan: Prior to 6 years ago she felt like her appetite and bowels were normal. 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 So I do not think she has liver disease or cholestasis. I talked to her about chronic pancreatitis, cystic fibrosis, Schwachman syndrome, Michela- Arrington syndrome, celiac disease, Inflammatory bowel disease. None of these ring a cheema for her. She is very clear the change happened 6 years ago before moving to [facility]. She has never had gastric surgery or pancreatic resection. Although she has defecation of just clear liquid water she denies that this could be urine in her bowel. She also denies stool in her urine so I doubt fistula. She has no history of scleroderma. She is not ingesting a lot of sorbitol. If she is having significant absorption, her CBC remains normal, magnesium is normal. She has no anemia, no microcytosis or macrocytosis.Iron studies show iron levels of 35. TIBC is 249. Ferritin is 126. Amylase and lipase are normal. Vitamin D level is low normal at 43. Vitamin B12 is normal at 341. Phosphorus 2.8. Zinc and celiac panel pending. Plan: Recommend colonoscopy with biopsy, as well as upper GI with jejunal aspirate. This will need to be outpatient stool C&S, O&P ordered and not done yet. (6) Pyloric stenosis in adult Impression: With a history of gastritis. No follow-up since the first time of her dilation. On review of systems she describes lack of hunger, and sometimes retention of even simple water. But then she also describes drinking water and 20 minutes later she is defecating clear water. I mentioned this to general surgery, Dr. Danielson, 09/09. He feels that that is not an inpatient problem that they need to handle. If we could please refer to the outpatient setting to get follow-up. The initial surgeon who saw her was Dr. Renny Claire and he is no longer with the clinic. Dr. Danielson feel that it is a procedure that he is not comfortable with and would not be doing at this hospital. I will refer to Dr. banegas.
--- NOTE | 2021-09-11 12:46 | XRAY Report ---
PROCEDURE: Chest 1 View X-Ray INDICATIONS: worsening cough and congestion TECHNIQUE: One view of the chest was acquired. COMPARISON: Prior chest radiograph, 09/08/2021. Correlation is made with prior chest CT, 03/25/2020 FINDINGS: Surgical changes and devices: None. Lungs and pleura: No pleural effusions or pneumothorax. Lungs are clear. Mediastinum: Mediastinal contours appear normal. Heart size is normal. Bones and chest wall: No suspicious bony lesions. A remote left posterior seventh rib fracture is ag ain seen. Overlying soft tissues appear unremarkable. IMPRESSION: No acute portable chest abnormality is seen. No infiltrate. Reviewed by: Femi Ansari MD on 09/11/2021 11:45 AM RU Approved by: Femi Ansari MD on 09/11/2021 11:45 AM RU Station ID: [id number]
[2021-09-11] MEDS: LOSARTAN 50 MG TABLET PO SCH (14:12)
[2021-09-11] MEDS: KETOROLAC 15 MG/ML VIAL IVP PRN (15:54)
[2021-09-11] MEDS: ACETAMINOPHEN 325 MG TABLET PO PRN ×2 (17:58→22:11)
[2021-09-11] MEDS: traZODone 50 MG TABLET PO SCH (22:09)
[2021-09-12] MEDS: SODIUM CHLORIDE FLUSH 0.9% 10 ML SYRINGE IVP SCH ×3 (00:04→16:37)
[2021-09-12] MEDS: methylPREDNISolone SUCCINATE 40 MG/ML VIAL IVP SCH ×3 (05:20→21:06)
[2021-09-12] MEDS: ACETAMINOPHEN 325 MG TABLET PO PRN (05:20)
[2021-09-12] MEDS: guaiFENesin/CODEINE 5 ML UDC PO PRN ×2 (05:20→22:08)
[2021-09-12] MEDS: IPRATROPIUM/ALBUTEROL 3 ML NEB INH SCH ×3 (07:21→19:08)
[2021-09-12] MEDS: NICOTINE 7 MG PATCH TOP SCH (08:51)
[2021-09-12] MEDS: AZITHROMYCIN INJ 500 MG in SODIUM CHLORIDE 0.9% 250 ML IV SCH (08:51)
[2021-09-12] MEDS: MULTIVITAMIN W/MINERALS TABLET PO SCH (08:51)
[2021-09-12] MEDS: SACCHAROMYCES BOULARDII 250 MG CAPSULE PO SCH ×2 (08:51→16:38)
[2021-09-12] MEDS: LOSARTAN 50 MG TABLET PO SCH (08:52)
[2021-09-12] MEDS: SERTRALINE 50 MG TABLET PO SCH (08:52)
[2021-09-12] MEDS: polyethylene glycoL 3350 17 GM PACKET PO SCH (08:52)
[2021-09-12] MEDS ORDERED: IOVERSOL 320 50 ML VIAL ONE (11:30)
[2021-09-12] MEDS: SODIUM CHLORIDE FLUSH 0.9% 10 ML SYRINGE IVP PRN ×2 (13:46→21:06)
--- NOTE | 2021-09-12 13:58 | PROVIDER PROGRESS NOTE ---
Subjective - Prog Note Date Prog Note Date: 09/12/21 Prog Note Time: 14:00 - Subjective Pt reports feeling: Improved Subjective: She is happy to report that her cough is looser. She says that tight feeling of suffocation is improved. Her phlegm is much looser and she is bringing up walter- green phlegm. No hemoptysis. Her rib cage has been hurting quite fiercely with a cough because of the rib fracture. That is hurting less as well. She has not lost any more teeth. Current Medications - Current Medications Current Medications: Active Medications Acetaminophen (Acetaminophen 325 Mg Tablet) 650 mg PO Q4HR PRN PRN Reason: Pain 1 to 4, or Fever Last Admin: 09/12/21 05:20 Dose: 650 mg Albuterol (Albuterol Neb 2.5 Mg/3 Ml) 2.5 mg INH Q2HR PRN PRN Reason: Wheezing Albuterol/Ipratropium (Ipratropium/Albuterol 3 Ml Neb) 3 ml INH RTQ6H [facility] Last Admin: 09/12/21 13:09 Dose: 3 ml Guaifenesin/Codeine Phosphate (Guaifenesin/Codeine 5 Ml Udc) 5 ml PO Q6HR PRN PRN Reason: Cough Last Admin: 09/12/21 05:20 Dose: 5 ml Ketorolac Tromethamine (Ketorolac 15 Mg/Ml Vial) 15 mg IVP Q6HR PRN PRN Reason: PAIN Stop: 09/14/21 09:16 Last Admin: 09/11/21 15:54 Dose: 15 mg Losartan Potassium (Losartan 50 Mg Tablet) 50 mg PO DAILY [facility] Last Admin: 09/12/21 08:52 Dose: 50 mg Methylprednisolone (Methylprednisolone Succinate 40 Mg/Ml Vial) 80 mg IVP TID [facility] Last Admin: 09/12/21 13:43 Dose: 80 mg Morphine Sulfate (Morphine 2 Mg/Ml Carpuject) 2 mg IVP Q2HR PRN PRN Reason: Shortness of Air/Wheezing Last Admin: 09/10/21 08:44 Dose: 2 mg Multivitamins/Minerals (Multivitamin W/Minerals Tablet) 1 tab PO DAILYWM [facility] Last Admin: 09/12/21 08:51 Dose: 1 tab Nicotine (Nicotine 7 Mg Patch) 1 patch TOP DAILY [facility] Last Admin: 09/12/21 08:51 Dose: 1 patch Ondansetron HCl (Ondansetron Odt 4 Mg Tablet) 4 mg TL Q6HR PRN PRN Reason: Nausea / Vomiting Ondansetron HCl (Ondansetron 4 Mg/2 Ml Vial) 4 mg IVP Q6HR PRN PRN Reason: Nausea / Vomiting Oxycodone HCl (Oxycodone 5 Mg Tablet) 5 mg PO Q4HR PRN PRN Reason: Pain 5 to 7 Last Admin: 09/11/21 22:10 Dose: 5 mg Polyethylene Glycol (Polyethylene Glycol 3350 17 Gm Packet) 17 gm PO DAILY [facility] Last Admin: 09/12/21 08:52 Dose: 17 gm Saccharomyces Boulardii (Saccharomyces Boulardii 250 Mg Capsule) 250 mg PO BIDWM [facility] Last Admin: 09/12/21 08:51 Dose: 250 mg Sertraline HCl (Sertraline 50 Mg Tablet) 100 mg PO DAILY [facility] Last Admin: 09/12/21 08:52 Dose: 100 mg Sodium Chloride (Sodium Chloride Flush 0.9% 10 Ml Syringe) 10 ml IVP PRN PRN PRN Reason: NEEDED PER PROVIDER ORDERS Last Admin: 09/12/21 13:46 Dose: 10 ml Sodium Chloride (Sodium Chloride Flush 0.9% 10 Ml Syringe) 10 ml IVP 0100,0900,1700 [facility] Last Admin: 09/12/21 08:52 Dose: 10 ml Trazodone HCl (Trazodone 50 Mg Tablet) 150 mg PO QPM [facility] Last Admin: 09/11/21 22:09 Dose: 150 mg Fluticasone/Salmeterol [Advair 250-50 Diskus] 1 puffs INH BID 07/09/20 Ipratropium/Albuterol [Duoneb] 3 ml INH QID PRN 07/09/20 Albuterol Sulfate [Proair Hfa Inhaler] 2 puffs INH Q4H PRN 09/08/21 Meloxicam [Mobic] 7.5 mg PO BID 09/08/21 Sertraline HCl 100 mg PO DAILY 09/08/21 Trazodone HCl 150 mg PO QPM 09/08/21 Objective - Vital Signs/Intake & Output Reviewed Vital Signs: Yes Vital Signs: Vital Signs x48h Temp Pulse Pulse Resp BP BP Pulse Ox 09/12/21 13:30 163/79 H 09/12/21 13:10 70 16 09/12/21 11:52 36.6 C 66 16 157/101 H 95 09/12/21 11:30 150/88 H 09/12/21 10:52 71 18 181/84 H 180/89 H 95 09/12/21 08:45 78 159/85 H 09/12/21 07:31 36.6 C 63 16 158/95 H 170/75 H 94 09/12/21 07:22 74 16 Intake & Output: Intake & Output 09/09/21 09/10/21 09/11/21 09/12/21 23:59 23:59 23:59 23:59 Intake Total 2770 2970 1870 1030 Output Total 1150 1425 2050 1375 Balance 1620 1545 180 -345 - Objective General Appearance: positive: No acute distress, Alert, Other (Slightly hoarse, nasal tone of voice, but overall no respiratory distress. Sitting comfortably in bed.) Eyes Bilateral: positive: PERRL, EOMI ENT: positive: No signs of dehydration Neck: positive: No JVD. negative: Stiff neck Respiratory: positive: No respiratory distress, Wheezes, Rhonchi, Other (No use of accessory muscles, sitting comfortably in bed speaking to me. Wheezes and rhonchi are diffuse. Good air movement.). negative: Rales Cardiovascular: positive: Regular rate & rhythm. negative: Gallop/S4, Friction rub Abdomen: positive: Non-tender, No organomegaly, Nml bowel sounds, No distention Skin: positive: Warm, Dry Extremities: positive: Full ROM, No pedal edema Neurologic/Psychiatric: positive: Oriented x3, CN's nml (2-12), Motor nml - Lab Results Fish Bones: 09/11/21 08:10 09/11/21 08:10 ABX Reporting Has patient been on IV antibiotics over the past 48 hours?: Yes Assessment/Plan - Problem List (1) Acute exacerbation of COPD with asthma Impression: .Patient presents with shortness of breath, cough, sinus and chest congestion for the l3 days [employer]CH[employer] that had been getting worse. 2 episodes of hives. Unresponsive to her nebulizers and the night before admission feels like she is getting hives. She is COVID vaccinated. Still smokes. In the ER she has a negative chest x-ray, COVID-negative. But has new hypoxemia not responding to nebulizers. CBC does not have eosinophilia. When she first came in, she improved with lung exam after our treatment. I had given her 3 doses of Solu-Medrol. I had thought the order dropped off and she was off it but she has been on it. O2 requirement was dropping. She had another episode of hives on the evening of September 08. None since. 09/10 much worse exam. Coughing, tearful, short of breath, wheezing. Loss a tooth with one of her episodes of coughing. The pain of the coughing has exa cerbated her old rib fracture. I increased solumedrol to 80 mg tid, Continued nebulizers at a fixed schedule, albuterol as needed, continued Perforomist and inhaled budesonide, Added morphine 2 mg IV every 2 to help with respiratory distress and with the pain. There is some limited studies that show that a macrolide such as azithromycin will reduce length of stay and improve symptoms even though the patient does not have clinical infection. I added azithromycin as well. Since those interventions, she has steadily improved. Today she said this is the loose cyst her chest is ever felt. She is still wheezing, still coughing and now her phlegm is loose enough that she is coughing up walter-green phlegm that she shows me on her napkin. No hemoptysis. Still has significant diffuse wheezing, however, and as such I will keep her in the hospital. Plan: Start reducing steroid. She is on 80 mg 3 times daily of Solu-Medrol, decrease to 40 mg 3 times daily for 3 doses. Continue all else. She will finish her azithromycin today. (2) Hypoxia resolved Conclusion/Plan: Hypoxia was new for her on admission. She was requiring 3 L to maintain her O2 sats. When they gave her steroids and nebs her O2 requirement started going down. In spite of COPD exacerbation 09/10, she was down to 92 or 93% on room air. No need for oxygen. Plan: Continue treatment as above. Continue to monitor for hypoxia. (3) Depression with anxiety Conclusion/Plan: Zoloft and trazodone resumed. (4) Moderate protein-calorie malnutrition Conclusion/Plan: On examination she is cachectic. Thin. Most recently states she is lost 20 pounds after losing 60 to 80 pounds. She really could not explain her lack of appetite. Nutrition services is working with her. They can only document a 10 pound weight loss between the last time she was seen and today. Reviewing her chart, I believe her problem may be due to incompletely treated ulcer disease or pyloric stenosis. Nutrition services had me do a vitamin D level and it is low normal. She is 43.6 where our lab has a low normal at 30. She is on supplemental Ensure. Plan: Get her to the outpatient evaluation for pyloric stenosis and in adequately treated H. pylori. She would like to see Dr. Banegas. I did also recommend Dr. Prieto but the patient would prefer former since he was mentioned by friends as the surgeon to see. CT of the abdomen ordered for today. (5) Abnormal intestinal absorption Conclusion/Plan: Prior to 6 years ago she felt like her appetite and bowels were normal. 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 So I do not think she has liver disease or cholestasis. I talked to her about chronic pancreatitis, cystic fibrosis, Schwachman syndrome, Michela- Arrington syndrome, celiac disease, Inflammatory bowel disease. None of these ring a cheema for her. She is very clear the change happened 6 years ago before moving to [facility]. She has never had gastric surgery or pancreatic resection. Although she has defecation of just clear liquid water she denies that this could be urine in her bowel. She also denies stool in her urine so I doubt fistula. She has no history of scleroderma. She is not ingesting a lot of sor bitol. If she is having significant absorption, her CBC remains normal, magnesium is normal. She has no anemia, no microcytosis or macrocytosis.Iron studies show iron levels of 35. TIBC is 249. Ferritin is 126. Amylase and lipase are normal. Vitamin D level is low normal at 43. Vitamin B12 is normal at 341. Phosphorus 2.8. Zinc and celiac panel pending. Plan: Recommend colonoscopy with biopsy, as well as upper GI with jejunal aspirate. This will need to be outpatient. CT of the abdomen today. stool C&S, O&P ordered and not done yet. (6) Pyloric stenosis in adult Impression: With a history of gastritis. No follow-up since the first time of her dilation. On review of systems she describes lack of hunger, and sometimes retention of even simple water. But then she also describes drinking water and 20 minutes later she is defecating clear water. I mentioned this to general surgery, Dr. Danielson, 09/09. He feels that that is not an inpatient problem that they need to handle. If we could please refer to the outpatient setting to get follow-up. The initial surgeon who saw her was Dr. Renny Claire and he is no longer with the clinic. Dr. Danielson feel that it is a procedure that he is not comfortable with and would not be doing at this hospital. I will refer to Dr. banegas. There is no ability for us to do upper GI since we do not have fluoroscopy. I discussed the case with radiology and they are recommending a CT of the abdomen with oral contrast which should help us identify if there is adequate passing through the stomach. (7) Hypertension Impression: Started on losartan 50 mg a day yesterday. Today she is consistently still elevated. Low she has been is in the 130s but she is up in the 160s and got as high as 190. She was a little bit lightheaded when she got out of bed this morning but there is no chest pain, flash pulmonary edema, headache, change in vision, or neurological deficit. As such I do not think her hypertension is urgent hypertension. Plan: Increase losartan to 100 mg daily Qualifiers: Hypertension type: primary hypertension Qualified Code(s): I10 - Essential (primary) hypertension
[2021-09-12] MEDS ORDERED: LOSARTAN 50 MG TABLET PO SCH (14:00)
[2021-09-12] MEDS ORDERED: LOSARTAN 50 MG TABLET PO ONE (14:00)
[2021-09-12] MEDS ORDERED: IOVERSOL 320 50 ML VIAL PO ONE (14:46)
--- NOTE | 2021-09-12 14:50 | CT Report ---
PROCEDURE: ABDOMEN WO INDICATIONS: gastric outlet obstruction CONTRAST: No IV contrast. Oral contrast administered. TECHNIQUE: After the administration of oral contrast, 5 mm thick sections acquired from the diaphragms to the il iac crests. 5 mm coronal and sagittal reformats were then performed. For radiation dose reduction, the following was used: automated exposure control, adjustment of mA and/or kV according to patient size. COMPARISON: CT lung cancer screening 03/25/2020.. FINDINGS: Image quality: Excellent. Lung bases: Lung bases are clear. Heart size is normal. Solid organs: Liver and spleen are normal in size. Gallbladder is unremarkable. Pancreas is normal in contours. No adrenal nodules. Both kidneys are normal in size, without hydronephrosis or nephro lithiasis. Peritoneum and bowel: Stomach is not distended. No small bowel obstruction. A few colonic diverticuli . The appendix is not dilated. Nodes and vessels: No retroperitoneal or mesenteric adenopathy by size criteria. Aorta and inferior vena cava are normal in size. Bones: No suspicious bony lesions. Mild degenerative change of the lumbar spine. No vertebral body compression fractures. Miscellaneous: No significant ventral hernias. IMPRESSION: 1. Stomach is not distended. 2. No small bowel obstruction. Reviewed by: Isma Barahona MD on 09/12/2021 2:49 PM PDT Approved by: Isma Barahona MD on 09/12/2021 2:49 PM PDT Station ID: [id number]
[2021-09-12] MEDS: KETOROLAC 15 MG/ML VIAL IVP PRN ×2 (16:37→22:08)
[2021-09-12] MEDS: traZODone 50 MG TABLET PO SCH (21:06)
[2021-09-13] MEDS: IPRATROPIUM/ALBUTEROL 3 ML NEB INH SCH ×5 (01:30→18:18)
[2021-09-13] MEDS: ACETAMINOPHEN 325 MG TABLET PO PRN ×2 (05:47→16:07)
[2021-09-13] MEDS: SODIUM CHLORIDE FLUSH 0.9% 10 ML SYRINGE IVP SCH ×4 (05:47→23:23)
[2021-09-13] MEDS: amLODIPine 5 MG TABLET PO SCH ×2 (05:47→08:16)
[2021-09-13] MEDS: methylPREDNISolone SUCCINATE 40 MG/ML VIAL IVP SCH ×3 (05:47→21:30)
--- NOTE | 2021-09-13 07:55 | PROVIDER PROGRESS NOTE ---
Subjective - Prog Note Date Prog Note Date: 09/13/21 Prog Note Time: 07:53 - Subjective Pt reports feeling: Improved Subjective: Patient reports that she is feeling a bit better today. She had a left sided headache overnight and then woke up with terrible headache behind her eyes. Once she was given tylenol and BP medication this went away. She is still wheezing but is not requiring oxygen. Reports ambulating all around in her room but avoiding hallways because "there is covid out there." She is hoping to stay another day to continue to improve. She has a nebulizer at home. She admits that with taking care of her grandkids she has let her health "take the backseat" but states that she feels motivated to take control of her health now. Current Medications - Current Medications Current Medications: Active Medications Acetaminophen (Acetaminophen 325 Mg Tablet) 650 mg PO Q4HR PRN PRN Reason: Pain 1 to 4, or Fever Last Admin: 09/13/21 05:47 Dose: 650 mg Albuterol (Albuterol Neb 2.5 Mg/3 Ml) 2.5 mg INH Q2HR PRN PRN Reason: Wheezing Albuterol/Ipratropium (Ipratropium/Albuterol 3 Ml Neb) 3 ml INH RTQ6H [facility] Last Admin: 09/13/21 07:29 Dose: 3 ml Amlodipine Besylate (Amlodipine 5 Mg Tablet) 10 mg PO DAILY [facility] Last Admin: 09/13/21 08:16 Dose: Not Given Guaifenesin/Codeine Phosphate (Guaifenesin/Codeine 5 Ml Udc) 5 ml PO Q6HR PRN PRN Reason: Cough Last Admin: 09/12/21 22:08 Dose: 5 ml Ketorolac Tromethamine (Ketorolac 15 Mg/Ml Vial) 15 mg IVP Q6HR PRN PRN Reason: PAIN Stop: 09/14/21 09:16 Last Admin: 09/12/21 22:08 Dose: 15 mg Losartan Potassium (Losartan 50 Mg Tablet) 100 mg PO DAILY [facility] Last Admin: 09/13/21 08:31 Dose: 100 mg Methylprednisolone (Methylprednisolone Succinate 40 Mg/Ml Vial) 40 mg IVP TID [facility] Morphine Sulfate (Morphine 2 Mg/Ml Carpuject) 2 mg IVP Q2HR PRN PRN Reason: Shortness of Air/Wheezing Last Admin: 09/10/21 08:44 Dose: 2 mg Multivitamins/Minerals (Multivitamin W/Minerals Tablet) 1 tab PO DAILYWM [facility] Last Admin: 09/13/21 08:28 Dose: 1 tab Nicotine (Nicotine 7 Mg Patch) 1 patch TOP DAILY [facility] Last Admin: 09/13/21 08:28 Dose: 1 patch Ondansetron HCl (Ondansetron Odt 4 Mg Tablet) 4 mg TL Q6HR PRN PRN Reason: Nausea / Vomiting Ondansetron HCl (Ondansetron 4 Mg/2 Ml Vial) 4 mg IVP Q6HR PRN PRN Reason: Nausea / Vomiting Oxycodone HCl (Oxycodone 5 Mg Tablet) 5 mg PO Q4HR PRN PRN Reason: Pain 5 to 7 Last Admin: 09/11/21 22:10 Dose: 5 mg Polyethylene Glycol (Polyethylene Glycol 3350 17 Gm Packet) 17 gm PO DAILY [facility] Last Admin: 09/13/21 08:28 Dose: 17 gm Saccharomyces Boulardii (Saccharomyces Boulardii 250 Mg Capsule) 250 mg PO BIDWM [facility] Last Admin: 09/13/21 08:28 Dose: 250 mg Sertraline HCl (Sertraline 50 Mg Tablet) 100 mg PO DAILY [facility] Last Admin: 09/13/21 08:28 Dose: 100 mg Sodium Chloride (Sodium Chloride Flush 0.9% 10 Ml Syringe) 10 ml IVP PRN PRN PRN Reason: NEEDED PER PROVIDER ORDERS Last Admin: 09/12/21 21:06 Dose: 10 ml Sodium Chloride (Sodium Chloride Flush 0.9% 10 Ml Syringe) 10 ml IVP 0100,0900,1700 [facility] Last Admin: 09/13/21 08:28 Dose: 10 ml Trazodone HCl (Trazodone 50 Mg Tablet) 150 mg PO QPM [facility] Last Admin: 09/12/21 21:06 Dose: 150 mg Fluticasone/Salmeterol [Advair 250-50 Diskus] 1 puffs INH BID 07/09/20 Ipratropium/Albuterol [Duoneb] 3 ml INH QID PRN 07/09/20 Albuterol Sulfate [Proair Hfa Inhaler] 2 puffs INH Q4H PRN 09/08/21 Meloxicam [Mobic] 7.5 mg PO BID 09/08/21 Sertraline HCl 100 mg PO DAILY 09/08/21 Trazodone HCl 150 mg PO QPM 09/08/21 Objective - Vital Signs/Intake & Output Reviewed Vital Signs: Yes Vital Signs: Vital Signs x48h Temp Pulse Pulse Resp BP BP Pulse Ox 09/13/21 07:31 78 20 09/13/21 07:25 36.8 C 76 16 155/93 H 94 09/13/21 05:25 207/83 H 09/13/21 00:18 36.4 C L 61 18 187/93 H 96 Intake & Output: Intake & Output 09/10/21 09/11/21 09/12/21 09/13/21 23:59 23:59 23:59 23:59 Intake Total 2970 1870 1717 Output Total 1425 2050 2225 Balance 7025 -950 -008 - Objective General Appearance: positive: No acute distress (thin white woman sitting in hospital bed) Eyes Bilateral: positive: Normal inspection, PERRL, EOMI ENT: positive: No signs of dehydration, Other (missing several teeth) Neck: positive: Nml inspection Respiratory: positive: Chest non-tender, Wheezes (prominant high pitched expiratory wheeze), Rales, Rhonchi Cardiovascular: positive: Regular rate & rhythm, No murmur, No gallop Abdomen: positive: Non-tender, Nml bowel sounds Neurologic/Psychiatric: positive: Oriented x3 - Lab Results Fish Bones: 09/11/21 08:10 09/11/21 08:10 Other Labs: Lab Results x24hrs 09/09/21 Range/Units 05:38 Zinc 53 (44-115) ug/dL ABX Reporting Has patient been on IV antibiotics over the past 48 hours?: Yes Assessment/Plan - Problem List (1) Acute exacerbation of COPD with asthma Impression: Patient's breathing has much improved. She is still wheezing but almost back to her baseline. 1. Plan to decrease steroids to 40mg IV 2. Continue duoneb and begin fomoterol and budesonide nebs 3. Plan to d/c tomorrow on po steroids and home nebs (2) Hypoxia Impression: Secondary to COPD exacerbation. Has resolved. Patient was originally hypoxic and requiring 3L to maintain O2 sats. Now 94% on room air after steroids and nebs. 1. Continue to monitor for hypoxia 2. Continue treatment as above. (3) Depression with anxiety Impression: Continue zoloft and trazadone (4) Moderate protein-calorie malnutrition Impression: Most likely related to her pyloric stenosis. Next step is to follow up for outpatient evaluation gastric emptying study. 1. Continue regular diet and supplemental ensure. (5) Abnormal intestinal absorption Impression: Unknown etiology but next step is to follow up for outpatient evaluation gastric emptying study. 1. Continue regular diet and supplemental ensure (6) Pyloric stenosis in adult Impression: CT of abdomen did not show distention or gastric outlet obstruction. Next step would be gastric emptying study with nuclear medicine as an outpatient. (7) Hypertension Impression: Patient had episode of headache overnight and a BP of 207/83 early this AM. 1. Continue Losartan 100mg and amlodipine 10mg. 2. Patient should continue this medication and discharge and follow up with PCP regarding affectedness and tolerance. Qualifiers: Hypertension type: primary hypertension Qualified Code(s): I10 - Essential (primary) hypertension
[2021-09-13] MEDS: MULTIVITAMIN W/MINERALS TABLET PO SCH (08:28)
[2021-09-13] MEDS: SACCHAROMYCES BOULARDII 250 MG CAPSULE PO SCH ×2 (08:28→16:07)
[2021-09-13] MEDS: polyethylene glycoL 3350 17 GM PACKET PO SCH (08:28)
[2021-09-13] MEDS: SERTRALINE 50 MG TABLET PO SCH (08:28)
[2021-09-13] MEDS: NICOTINE 7 MG PATCH TOP SCH (08:28)
[2021-09-13] MEDS: LOSARTAN 50 MG TABLET PO SCH (08:31)
[2021-09-13] MEDS: BUDESONIDE 0.5 MG/2 ML NEB INH SCH (18:18)
[2021-09-13] MEDS: FORMOTEROL FUMARATE NEB 20 MCG/2 ML INH SCH (18:20)
[2021-09-13] MEDS: KETOROLAC 15 MG/ML VIAL IVP PRN (18:26)
[2021-09-13] MEDS: SODIUM CHLORIDE FLUSH 0.9% 10 ML SYRINGE IVP PRN ×2 (18:26→23:21)
[2021-09-13] MEDS: guaiFENesin/CODEINE 5 ML UDC PO PRN (19:41)
[2021-09-13] MEDS: traZODone 50 MG TABLET PO SCH (21:30)
[2021-09-14] MEDS: methylPREDNISolone SUCCINATE 40 MG/ML VIAL IVP SCH (05:36)
[2021-09-14] MEDS: IPRATROPIUM/ALBUTEROL 3 ML NEB INH SCH ×2 (06:48→07:15)
[2021-09-14] MEDS: FORMOTEROL FUMARATE NEB 20 MCG/2 ML INH SCH (07:15)
[2021-09-14] MEDS: BUDESONIDE 0.5 MG/2 ML NEB INH SCH (07:15)
--- NOTE | 2021-09-14 07:25 | DISCHARGE SUMMARY ---
Discharge Summary Admit Date: 09/08/21 Discharge Date: 09/14/21 Discharging Provider: Tommy Castro Primary Care Provider: Paris Tucker Code Status: Attempt Resuscitation Condition at Discharge: Stable Discharge Disposition: 01 Home, Self Care - DIAGNOSES Admission Diagnoses: Acute exacerbation of COPD with asthma Hypoxia Depression with anxiety Moderate protein calorie malnutrition Abnormal intestinal absorption Discharge Diagnoses with Status of Each Condition: Acute exacerbation of COPD with asthma: Improved/resolved. Patient discharged home with prednisone taper and to continue regular pulmonary regimen Hypoxia: Acute. Resolved Depression with anxiety: Chronic. Controlled. Continue home medications Moderate protein calorie malnutrition: Regular diet, supplemental ensure given. Abnormal intestinal absorption: Primary provider to make a referral for evaluation and gastric emptying study Hypertension: Amlodipine and Losartan prescribed - HPI History of Present Illness: She is a smoker of about half a pac/day. Has a history of asthma and usually takes an inhaled steroid as well as short acting bronchodilator. In the last 3 days she has worsened with her cough, sob, congestion. . Inhalers are no longer controlling her symptoms and she came to the emergency room. 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 She takes care of not only her grandchildren, but [employer]. The youngest is 1-year-old and the oldest is 6. Her granddaughter was sick with a cold and had a fever and she thinks she got a cold from her granddaughter. There is no phlegm discoloration. No hemoptysis. She herself has not had fever or rigors. Just increasing congestion, cough, and wheezing that is not able to be relieved by her inhalers. Yesterday she went out for a smoke and was standing on the porch. When she came back in she felt like she was itching on her legs and looked down at her knees. She noticed that there were welts/hives there but they went away after 30 to 40 minutes and she ignored them. They were intensely pruritic. Today in the emergency room she had another episode of hives that were over her back, arms, legs. They only lasted about 30 to 40 minutes and they have gone away. She has never had hives like this before. On review of systems, although she has well-established COPD and asthma, her GI review of systems is also notably positive. For about 6 years she has been having early satiety. She can eat normally for a few days in a row and then she just loses her appetite. She will eat a candy bar and that will last her 3 or 4 days if not more. She can actually go up to 10 days without eating and not miss food at all. She does drink water to make sure she stays hydrated but she has abolutely no desire to eat. If she drinks too much water, her belly will feel like it is too distended and that "I am going to explode". In addition to that, she can drink a glass of water and 30 minutes later water comes through her system and she defecates pure water. She did have an EGD 4 years ago and was found to have "some type of infection" but was never really able to complete therapy with the antibiotics because they made her so sick. She does not remember having a colonoscopy or biopsies to establish any diseases. I asked her if she had celiac disease, or inflammatory bowel disease and she is not aware of any of those things. She has had tremendous weight loss with this. However, her sister is a rubbish collector. Since her sister is moved to the [place] and her sister is mated for [employer] to make sure that August eats enough. Socially she has been slowly gaining some weight back but she still pretty thin. She is starting to lose her teeth. She just lost a tooth yesterday. And hair is falli ng out. She says that she is kind of ashamed about this and has not discussed this with anybody. I asked why she should feel so shameful about a bowel disorder that she has no control over. I asked her point blank if she has some type of eating disorder and she says no. She used to love food. She does not know why this has been happening. She denies fevers, sweats, abdominal pain. No blood in her stool. No change in bladder habits. In the emergency room blood pressure is high at 180/90. Heart rate 100. Initially she was 100% on room air. But with trying to get up and move around h er room air sats dropped to 89%. She received albuterol once, Keflex once, dexamethasone, DuoNeb twice and is continuing to wheeze and be short of breath with use of accessory muscles. She also has a new hypoxemia that she did not have before. As such Dr. Maynard is asking the patient to be placed in observation status for COPD exacerbation. - HOSPITAL COURSE Hospital Course: Patient was placed on Solu-Medrol IV. She was also prescribed administered s cheduled DuoNeb breathing treatments, albuterol, She was placed on supplemental oxygen as well. Over the course of her 6-day hospital stay her respiratory status steadily improved and by the time of discharge she was breathing comfortably on room air. She had significantly elevated blood pressures in the hospital. It was as high as 207. She was on losartan and amlodipine. Upon discharge she was prescribed losartan 100 mg p.o. daily and amlodipine 10 mg p.o. daily. Discharged in stable condition and advised to follow-up with her primary care physician within 7 to 10 days or as needed. - ALLERGIES Allergies/Adverse Reactions: Allergies Allergy/AdvReac Type Severity Reaction Status Date / Time Fish Containing Products Allergy Anaphylaxis Verified 09/08/21 17:00 meperidine [From Demerol] Allergy Emesis Verified 09/08/21 09:35 morphine Allergy Emesis Verified 09/08/21 09:35 shellfish derived Allergy Anaphylaxis Verified 09/08/21 16:59 - MEDICATIONS Home Medications: Ambulatory Orders Medication Instructions Recorded Confirmed Ipratropium/Albuterol [Duoneb] 3 ml INH QID PRN 07/09/20 09/08/21 Meloxicam [Mobic] 7.5 mg PO BID 09/08/21 09/08/21 Sertraline HCl 100 mg PO DAILY 09/08/21 09/08/21 Trazodone HCl 150 mg PO QPM 09/08/21 09/08/21 Albuterol Sulfate [Proair Hfa 2 puffs INH Q4H PRN #1 inhaler 09/14/21 Inhaler] Fluticasone/Salmeterol [Advair 1 puffs INH BID #1 unit 09/14/21 250-50 Diskus] Losartan [Cozaar] 100 mg PO DAILY 30 Days #60 tablet 09/14/21 Nicotine 7 mg Patch [Nicoderm] 1 patch TOP DAILY #30 patch 09/14/21 amLODIPine [Norvasc] 10 mg PO DAILY 30 Days #60 tablet 09/14/21 predniSONE [Deltasone] 10 mg PO [id number] #11 tablet 09/14/21 - PHYSICAL EXAM AT DISCHARGE General Appearance: positive: No acute distress, Alert Eyes Bilateral: positive: PERRL, EOMI ENT: positive: No signs of dehydration Neck: positive: No JVD, Trachea midline Respiratory: positive: Chest non-tender, No respiratory distress, Breath sounds nml, Wheezes. negative: Rales (mild) Cardiovascular: positive: Regular rate & rhythm Abdomen: positive: Non-tender, Nml bowel sounds, No distention. negative: Guarding, Rebound Back: positive: Nml inspection Skin: positive: Color nml, No rash, Warm, Dry Extremities: positive: Non-tender, Full ROM, Nml appearance, No pedal edema Neurologic/Psychiatric: positive: Oriented x3, Mood/affect nml - LABS Result Diagrams: 09/11/21 08:10 09/11/21 08:10 - TIME SPENT Time Spent in Discharge (Minutes): 20
--- NOTE | 2021-09-14 07:25 | Discharge Plan ---
Discharge Plan Problem Reviewed?: Yes Disposition: Home, Self Care Condition: Stable Prescriptions: Fluticasone/Salmeterol [Advair 250-50 Diskus] 1 puffs INH BID #1 unit Losartan [Cozaar] 100 mg PO DAILY 30 Days #60 tablet predniSONE [Deltasone] 10 mg PO [id number] #11 tablet Nicotine 7 mg Patch [Nicoderm] 1 patch TOP DAILY #30 patch amLODIPine [Norvasc] 10 mg PO DAILY 30 Days #60 tablet Albuterol Sulfate [Proair Hfa Inhaler] 2 puffs INH Q4H PRN #1 inhaler PRN Reason: Shortness Of Air/Wheezing Diet: Cardiac Activity Restrictions: Activity as Tolerated Weight Bearing: Full Weight Health Concerns: You were admitted on 09/08/21 with wheezing and difficulty breathing. This was due to exacerbation of your COPD with asthma. You were started on supplemental oxygen through a nasal cannula and were also given steroids in the IV form and breathing treatment. Over the course of 6 days your respiratory status improved significantly. By the time of discharge she was breathing comfortably on oxygen. You will be discharged home with a prescription of prednisone 10 mg tablets to take 2 tablets daily for 3 days then take 1 tablet daily for the next 3 days and then half a tablet daily for final 3 days. This taper would be over 9 days. You were also had significantly elevated high blood pressure for which you were treated with losartan 100 mg p.o. and amlodipine 10 mg daily. Amlodipine and losartan will be prescribed and sent to your pharmacy upon discharge as well. You are to follow-up with your primary care physician within 7 to 10 days or as needed. Should you experience worsening RESPIRATORY: Clear to auscultation. Breath sounds equal bilaterally. No wheezes, rales, or rhonchi. All significantly elevated blood pressure not responding to your home medications do not hesitate to come back to the emergency department for reevaluation. The above plan was discussed with you, you expressed understanding and are agreeable with the plan. No Smoking: If you smoke, Please STOP! Call for help. Follow-up with: Paris Tucker PA-C [Primary Care Provider] -
[2021-09-14 09:45] VITALS: BP 169/99
[2021-09-14] MEDS: NICOTINE 7 MG PATCH TOP SCH (10:02)
[2021-09-14] MEDS: polyethylene glycoL 3350 17 GM PACKET PO SCH (10:06)
[2021-09-14] MEDS: MULTIVITAMIN W/MINERALS TABLET PO SCH (10:07)
[2021-09-14] MEDS: SERTRALINE 50 MG TABLET PO SCH (10:08)
[2021-09-14] MEDS: LOSARTAN 50 MG TABLET PO SCH (10:09)
[2021-09-14] MEDS: SACCHAROMYCES BOULARDII 250 MG CAPSULE PO SCH (10:09)
[2021-09-14] MEDS: amLODIPine 5 MG TABLET PO SCH (10:09)
[2021-09-14] MEDS: SODIUM CHLORIDE FLUSH 0.9% 10 ML SYRINGE IVP SCH (10:12)
== END 2021-09-14 10:55 | disposition home or self-care (01) | DRG 191 ==
LOC: ED 09:33 → MS2 15:15 → OBSVTOIN 09-10 14:01
PROVIDERS: ADMIT Specialist; ATTEND Internal Medicine
DX: J44.1 Chronic obstructive pulmonary disease with (acute) exacerbation (principal); K90.9 Intestinal malabsorption, unspecified; K31.1 Adult hypertrophic pyloric stenosis; F17.210 Nicotine dependence, cigarettes, uncomplicated; F32.A Depression, unspecified; F41.9 Anxiety disorder, unspecified; I10 Essential (primary) hypertension; E78.00 Pure hypercholesterolemia, unspecified; G40.909 Epilepsy, unspecified, not intractable, without status epilepticus; G47.30 Sleep apnea, unspecified; H54.7 Unspecified visual loss; K08.409 Partial loss of teeth, unspecified cause, unspecified class; J06.9 Acute upper respiratory infection, unspecified; Z20.822 Contact with and (suspected) exposure to COVID-19; Z79.51 Long term (current) use of inhaled steroids; Z79.899 Other long term (current) drug therapy; Z80.0 Family history of malignant neoplasm of digestive organs; Z81.1 Family history of alcohol abuse and dependence; Z82.49 Family history of ischemic heart disease and other diseases of the circulatory system; Z83.2 Family history of diseases of the blood and blood-forming organs and certain disorders involving the immune mechanism; Z86.73 Personal history of transient ischemic attack (TIA), and cerebral infarction without residual deficits
CPT/HCPCS: 36415; 71045; 74150; 80048; 80053; 82150; 82306; 82607; 82728; 82784; 83516; 83540; 83690; 83735; 83880; 84100; 84466; 84630; 85025; 85651; 86255; 87635; 94640; 94664; 96374; 96375; 96376; 99283; 99285; A9270; J7626; 87045; 87046

== ENCOUNTER 2021-10-03 12:55 | Outpatient (CLI) | payer MEDICAID ==
--- NOTE | 2021-10-03 16:51 | CT Report ---
PROCEDURE: Low Dose Lung Cancer Screen INDICATIONS: SMOKER TECHNIQUE: Noncontrast low-dose images were acquired from the pulmonary apices to the posterior costophrenic ang les. Multiplanar MIP reformats were then acquired. For radiation dose reduction, the following was used: automated exposure control, adjustment of mA and/or kV according to patient size. COMPARISON: Chest CT without contrast dated 03/25/2020.. FINDINGS: Image quality: Excellent. Lungs and pleura: Stable 2 mm pulmonary nodule, inner basal segment right lower lobe, current image 221/4 and previous image 230/4. Stable calcification, possibly a pleural calcification, or possibly j ust below the diaphragm above the liver, current image 233/4 and previous image 241/4. No new or incr easing pulmonary nodules. Mediastinum: Heart size is normal. No pericardial effusion. No mediastinal adenopathy by size crit eria. Thoracic aorta and central pulmonary arteries are normal in size. Esophagus is normal in erin ricarda. No hiatal hernia. Bones and chest wall: No suspicious bony lesions. No vertebral body compression fractures. No axil [place] or supraclavicular adenopathy by size criteria. Thyroid is grossly unremarkable as visualized Abdomen: Visualized upper abdomen solid organs and bowel loops appear normal in the absence of contr ast. IMPRESSION: 1. LungRads Category 2: Benign appearance or behavior-nodules with a very low likelihood of becoming a clinically active cancer due to size or lack of growth. 2. Annual follow-up low-dose noncontrast CT of the chest is recommended for lung cancer screening. CLINICAL RECOMMENDATION STATEMENTS: In patients <35 years with an ITN detected on CT, MRI, or extrathyroidal ultrasound, the Committee re commends further evaluation with dedicated thyroid ultrasound if the nodule is "e1 cm and has no susp icious imaging features, and if the patient has normal life expectancy. In patients "e35 years with an ITN detected on CT, MRI, or extrathyroidal ultrasound, the Committee r ecommends further evaluation with dedicated thyroid ultrasound if the nodule is "e1.5 cm and has no s uspicious imaging features, and if the patient has normal life expectancy. (ACR, 2014) Reviewed by: Camden Mukherjee MD on 10/03/2021 4:50 PM PDT Approved by: Camden Mukherjee MD on 10/03/2021 4:50 PM PDT Station ID: [id number]
== END 2021-10-03 12:56 | disposition home or self-care (01) ==
LOC: DI 12:55
PROVIDERS: ATTEND Nurse Practitioner
DX: Z12.2 Encounter for screening for malignant neoplasm of respiratory organs (principal); R91.8 Other nonspecific abnormal finding of lung field; F17.210 Nicotine dependence, cigarettes, uncomplicated

== ENCOUNTER 2022-10-06 10:24 | Outpatient (CLI) | payer MEDICAID ==
--- NOTE | 2022-10-06 15:47 | CT Report ---
PROCEDURE: Low Dose Lung Cancer Screen INDICATIONS: HIST OF TOBACCO USE TECHNIQUE: Noncontrast low-dose axial images were acquired from the pulmonary apices to the posterior costophren ic angles. Multiplanar MIP reformats were then reconstructed. For radiation dose reduction, the follo wing was used: automated exposure control, adjustment of mA and/or kV according to patient size. COMPARISON: 10/03/2021. FINDINGS: Prior cancer history: Unsure. Lungs and pleura: Nodules include: Right lower lobe superior segment subpleural: 3 mm (4/117), unchan ged. No pleural effusion. Mediastinum: No pericardial effusions. No significant coronary calcifications. Chest wall and lower neck: No axillary or supraclavicular adenopathy by size. Bones: No aggressive osseous abnormality. Upper Abdomen: Unremarkable. IMPRESSION: Lung RAD: 2 - Benign. Recommendation: Continue annual screening in 12 Months with LDCT Non-Lung Significant Findings: None. Reviewed by: Jacob Adamson MD on 10/06/2022 3:45 PM PDT Approved by: Jacob Adamson MD on 10/06/2022 3:45 PM PDT Station ID: [id number]
== END 2022-10-06 10:25 | disposition home or self-care (01) ==
LOC: DI 10:24
PROVIDERS: ATTEND Nurse Practitioner
DX: Z12.2 Encounter for screening for malignant neoplasm of respiratory organs (principal); Z87.891 Personal history of nicotine dependence

== ENCOUNTER 2022-11-01 10:22 | Outpatient (CLI) | payer MEDICAID ==
[2022-11-01 11:57] LABS: BASOPHILS # (AUTO) 0.1 10^3/uL (0.0-0.1); BASOPHILS % (AUTO) 1.1 %; EOSINOPHILS # (AUTO) 0.1 10^3/uL (0.0-0.7); EOSINOPHILS % (AUTO) 2.1 %; HCT - HEMATOCRIT 42.5 % (37.0-47.0); HGB - HEMOGLOBIN 14.7 g/dL (12.0-16.0); LYMPHOCYTES # (AUTO) 1.4 10^3/uL (1.5-3.5); LYMPHOCYTES % (AUTO) 25.3 %; MEAN CORPUSCULAR HEMOGLOBIN 30.4 pg (27.0-31.0); MEAN CORPUSCULAR HGB CONC 34.6 g/dL (32.0-36.0); MEAN CORPUSCULAR VOLUME 87.8 fL (81.0-99.0); MEAN PLATELET VOLUME 10.5 fL (7.9-10.8); MONOCYTES # (AUTO) 0.4 10^3/uL (0.0-1.0); MONOCYTES % (AUTO) 6.9 %; NEUTROPHILS # (AUTO) 3.4 10^3/uL (1.5-6.6); NEUTROPHILS % (AUTO) 64.4 %; PLT - PLATELET COUNT 309 10^3/uL (130-450); RED BLOOD COUNT 4.84 10^6/uL (4.20-5.40); RED CELL DISTRIBUTION WIDTH 12.4 % (12.0-15.0); WHITE BLOOD COUNT 5.3 x10^3/uL (4.8-10.8)
[2022-11-01 12:20] LABS: ALBUMIN 4.3 g/dL (3.2-5.5); ALBUMIN/GLOBULIN RATIO 1.2 (1.0-2.2); BILIRUBIN,TOTAL 0.9 mg/dL (0.2-1.0); CALCIUM 9.4 mg/dL (8.5-10.3); CREATININE 1.1 mg/dL (0.4-1.0); POTASSIUM 4.5 mmol/L (3.5-5.0); TOTAL PROTEIN 7.8 g/dL (6.7-8.2)
== END 2022-11-01 10:23 | disposition home or self-care (01) ==
LOC: LAB.N 10:22
PROVIDERS: ATTEND Nurse Practitioner
DX: I10 Essential (primary) hypertension (principal); D64.9 Anemia, unspecified
CPT/HCPCS: 36415; 80053; 85025

== ENCOUNTER 2023-02-16 13:10 | Outpatient (CLI) | payer MEDICAID ==
--- NOTE | 2023-02-16 16:56 | Ultrasound Report ---
PROCEDURE: Abdomen Limited INDICATIONS: LLQ ABDOMINAL PAIN TECHNIQUE: Real-time focused scanning was performed of the abdomen, with image documentation. COMPARISONS: CT abdomen on September 12, 2021. FINDINGS: Grayscale and color images of the left lower abdomen adjacent to the umbilicus corresponding to area of discomfort demonstrates no sonographic abnormality. Specifically, no evidence of a hernia. IMPRESSION: No sonographic abnormality corresponding to area of discomfort in the left lower quadrant. Specifical ly, no evidence of a hernia. Reviewed by: Shahla Whyte MD on 02/16/2023 4:55 PM PDT Approved by: Shahla Whyte MD on 02/16/2023 4:55 PM PDT Station ID: [id number]
== END 2023-02-16 13:11 | disposition home or self-care (01) ==
LOC: DI 13:10
PROVIDERS: ATTEND Nurse Practitioner
DX: R10.32 Left lower quadrant pain (principal)